=== PATIENT | male | born 1935 | race Caucasian/White ===

== ENCOUNTER 2016-12-13 11:20 | Inpatient (IN) | payer MEDICARE, OTHER ==
[~2016-12-13] VITALS: Ht 182.9 cm; Wt 115.5 kg
[2016-12-19] MEDS ORDERED: OXYC1TAB36 PO (10:30)
[2016-12-19] MEDS ORDERED: PRAV20TA2 PO (10:30)
[2016-12-19] MEDS ORDERED: GLIP10TA6 PO (10:30)
[2016-12-19] MEDS ORDERED: MIRA33504 PO (10:30)
[2016-12-19] MEDS ORDERED: NIAC500T5 PO (10:30)
[2016-12-19] MEDS ORDERED: IPRAAER INH (10:30)
[2016-12-19] MEDS ORDERED: ASPI325T PO (10:30)
[2016-12-19] MEDS ORDERED: OMEP20TA PO (10:30)
[2016-12-19] MEDS ORDERED: CARV3.12 PO (10:30)
[2016-12-19] MEDS ORDERED: MORP1TAB24 PO (10:30)
[2016-12-19] MEDS ORDERED: CLON0.1T PO (10:30)
[2016-12-19] MEDS ORDERED: HYDR-3583 PO (10:30)
[2016-12-19] MEDS ORDERED: FURO20TA PO (10:30)
[2017-01-04] MEDS ORDERED: TRANEXAMIC ACID IV SCH (05:45)
[2017-01-04] MEDS ORDERED: ceFAZolin 2 GM PREMIX 50 ML IV SCH (05:45)
[2017-01-04] MEDS ORDERED: SODIUM CHLORID 0.9% 500 ML IV PRN (05:45)
[2017-01-04] MEDS ORDERED: CHLORHEXIDINE GLUCONATE 2 % 1 PACK (2 CLOTHS) TOPICAL PRN (05:45)
[2017-01-04] MEDS ORDERED: VANCOMYCIN 1000 MG/NS 250 ML (for <70 kg) IV SCH ×2 (05:45)
[2017-01-04] MEDS ORDERED: POVIDONE IODINE 5% (ANTISEPSIS KIT) 4 APPLICATIONS EACH NARE PRN (05:45)
[2017-01-04] MEDS ORDERED: POVIDONE IODINE 7.5% SCRUB 118 ML BOTTLE TOPICAL SCH (05:45)
[2017-01-04] MEDS ORDERED: DEXAMETHASONE SOD PHOS 20 MG/5 ML VIAL IV PUSH SCH (05:45)
[2017-01-04] MEDS ORDERED: EXPAREL PERI-ARTICULAR INJECTION (TOTAL VOL. 60 ML) P-ARTICULR SCH ×2 (05:45)
[2017-01-04] MEDS ORDERED: SODIUM CHLORIDE 0.9% IV SCH (05:45)
[2017-01-04] MEDS ORDERED: INSULIN HUMAN REGULAR 1,000 UNITS/10 ML VIAL SQ PRN (05:45)
[2017-01-04] MEDS ORDERED: METOPROLOL TARTRATE 25 MG TAB PO PRN (05:45)
[2017-01-04] MEDS ORDERED: LACTATED RINGER'S 1000 ML IV PRN (05:45)
[2017-01-04 05:50] VITALS: BP 160/78; PULSE 60; RESP 22; TEMP 97.4; O2SAT 97
[2017-01-04] MEDS ORDERED: GENTAMICIN SULFATE 80 MG/2 ML VIAL ONE ×2 (06:11)
[2017-01-04] MEDS ORDERED: ACETAMINOPHEN 1000 MG/100 ML VIAL IV ONE (06:38)
[2017-01-04] MEDS ORDERED: FAMOTIDINE 20 MG/2 ML VIAL ONE (06:41)
[2017-01-04] MEDS ORDERED: MIDAZOLAM HCL 2 MG/2 ML VIAL ONE (06:41)
[2017-01-04] MEDS ORDERED: fentaNYL CITRATE 250 MCG/5 ML AMP ONE (06:41)
--- NOTE | 2017-01-04 06:46 | HHI.DCPOC ---
Discharge Care Plan Diagnosis: (1) Osteoarthritis of right hip (2) Status post total hip replacement, right Your Health Problems Are: Difficulty with ADL Goals to Promote Your Health * To prevent worsening of your condition and complications * To maintain your health at the optimal level Directions to Meet Your Goals Take your medications as prescribed Follow your dietary instruction Follow activity as directed Keep your appointments as scheduled Take your immunizations and boosters as scheduled If your symptoms worsen call your PCP, if no PCP go to Urgent Care Center or Emergency Room Smoking is Dangerous to Your Health. Avoid second hand smoke Call the 24-hour hour crisis hotline for domestic abuse at Raji Rangel January 04, 2017 06:46
--- NOTE | 2017-01-04 06:47 | HHI.FF ---
Face to Face Verification Diagnosis: (1) Osteoarthritis of right hip (2) Status post total hip replacement, right Physical Therapy Gait training, Transfer training, bed to chair Hip: Total hip Right LE Weight Bearing: WB as tolerated Right LE Range of Motion: Active ROM Nursing Nursing: Lara teaching, Dressing changes Dressing Changes: Daily dressing change I have seen patient Ton Anna on 01/04/17. My clinical findings support the need for the requested home health care services because: Limited ability to care for self High risk of falls I certify that my clinical findings support that this patient is homebound because: Post-op weakness Unsteady gait/balance Raji Rangel January 04, 2017 06:47
[2017-01-04] MEDS ORDERED: MORPHINE SULFATE 4 MG/ML INJ IV PUSH PRN (08:45)
[2017-01-04] MEDS ORDERED: SODIUM CHLORIDE 0.9% FLUSH 5 ML FLUSH IVF PRN (08:45)
[2017-01-04] MEDS ORDERED: ALUMINUM/MAGNESIUM/SIMETH 30 ML CUP PO PRN (08:45)
[2017-01-04] MEDS ORDERED: ZOLPIDEM TARTRATE 5 MG TAB PO PRN (08:45)
[2017-01-04] MEDS ORDERED: diphenhydrAMINE HCL 50 MG/ML VIAL IV PRN (08:45)
[2017-01-04] MEDS ORDERED: Post-op Orders (for Pharmacy) MISC XX ONE (08:45)
[2017-01-04] MEDS ORDERED: ONDANSETRON HCL 4 MG/2 ML VIAL IVP PRN (08:45)
[2017-01-04] MEDS ORDERED: BISACODYL 10 MG SUPP RECTAL PRN (08:45)
[2017-01-04] MEDS ORDERED: MAGNESIUM HYDROXIDE SUSP 30 ML CUP PO PRN (08:45)
[2017-01-04] MEDS ORDERED: NALOXONE HCL 0.4 MG/ML AMP IV PRN (08:45)
--- NOTE | 2017-01-04 08:46 | PD.OP ---
cc: Moody Wilder MD Operative Report Date of Surgery: January 04, 2017 Preoperative Diagnosis: Right hip severe osteoarthritis Postoperative Diagnosis: Same Procedure: Right total hip arthroplasty Anesthesia: Gen. Surgeon: Moody Wilder Convention Manager(s): PAKO Londono The surgical procedure was assisted by my Advanced Registered Nurse Practitioner. My VP HR DIVERSITY presence was necessary throughout this case for the manipulation and positioning of the surgical extremity. My VP HR DIVERSITY was assisting me throughout the duration of this procedure. The skill set of an Advance Registered Nurse Practitioner was medically necessary to complete this procedure. During the surgical case, the technician chemical cleaning was working at the back table and the Advance Registered Nurse Practitioner was directly assisting me. Operation and Findings: IMPLANT DESCRIPTION: 1. [place] Gription Cup, acetabular size 56. 2. [place] AltrX polyethylene, neutral. 4. [place] femoral stem size 16, no collar, standard offset. 5. Femoral head/neck metal, 36, +5. ESTIMATED BLOOD LOSS: 250 cc. JUSTIFICATION FOR PROCEDURE: The patient has end-stage osteoarthritis to the hip. There is an attached conservative measures pathway form in the chart that describes the nonoperative measures that were undertaken prior to consideration of surgical management. The patient understood the risks and benefits of surgical management. See my office notes for further details. PROCEDURE: The patient was brought back to the operative theatre. Adequate anesthesia was obtained. The patient received intravenous vancomycin and Ancef. The patient was carefully placed on the operative table. The lower extremity was prepped and draped in the usual sterile fashion. Fluoroscopic images were obtained. We made a standard anterior incision over the hip. We dissected through the TFL fascia, exposing the anterior capsule. Arthrotomy was performed in a T-shaped fashion. The capsule was tagged with a #2 FiberWire. End-stage arthritis was identified. Osteotomy was performed through the femoral neck exposing the acetabulum. Remnants of the labrum were resected and osteophytes were removed. We sequentially reamed the acetabulum. We trialed the hip and placed the final cup into position. This was done under fluoroscopic guidance to obtain the appropriate inclination and anteversion. A manhole cover was placed into the acetabular component. We then placed the final polyethylene into position and confirmed that it was well seated. Capsular attachments on the calcar and the inner aspect of the greater trochanter were resected. On the proximal aspect of the femur we used a rongeur , box osteotome, canal finder, sequential broaches and lateralizing rasp. We calcar planed the proximal femur. Then thoroughly irrigated the wound. We trialed the hip with the appropriate size stem. We placed the final stem in to position and trialed again. The hip was stable while it was externally rotated 70 degrees when the leg was lowered to the floor. The final head was applied, and final fluoroscopic images were obtained. The wound was thoroughly irrigated again. Interarticular injection of liposomal bupivacaine was given. The capsule was closed with #2 FiberWire and #1 Vicryl. The deep fascia was closed with a #2 Stratafix, followed by 2-0 Vicryl in the skin and ad. Postop plan is to weight-bear as tolerated. DVT prophylaxis will be performed with Marga, MAYE alcala, early mobilization, and Lovenox followed by aspirin. Moody Wilder MD January 04, 2017 08:46
[2017-01-04] MEDS ORDERED: ENOX40P SQ (08:48)
[2017-01-04] MEDS ORDERED: ASPI325T PO (08:48)
[2017-01-04] MEDS ORDERED: PERC10TA27 PO (08:48)
--- NOTE | 2017-01-04 08:48 | RADRPT ---
EXAM DATE/TIME: 01/04/2017 07:18 [facility] COMPARISON: No previous studies available for comparison. INDICATIONS : Post-op total right hip arthroplasty. MEDICAL HISTORY : None. SURGICAL HISTORY : None. ENCOUNTER: Initial ACUITY: 1 day PAIN SCORE: Non-responsive. LOCATION: Right hip. CONCLUSION: Fluoroscopic images of right hip arthroplasty. Toribio Baker MD on January 04, 2017 at 8:46 Board Certified Radiologist. This report was verified electronically.
[2017-01-04] MEDS: SODIUM CHLORIDE 0.9% FLUSH 5 ML FLUSH IVF SCH ×2 (09:00→21:03)
[2017-01-04] MEDS ORDERED: DO NOT ADM ANY ANTICOAGULANT DRUGS PRN (09:15)
[2017-01-04] MEDS ORDERED: *morphine SULFATE 8 MG/ML PERIprocedure ONLY ONE ×2 (09:18→09:31)
[2017-01-04] MEDS ORDERED: TRANEXAMIC ACID INJ 1,100 MG in SODIUM CHLORIDE 0.9% INJ 100 ML IV SCH (10:00)
[2017-01-04] MEDS ORDERED: *ENALAPRILAT 1.25 MG/ML VIAL PERIprocedural Use ONLY ONE (10:20)
--- NOTE | 2017-01-04 10:34 | RADRPT ---
EXAM DATE/TIME: 01/04/2017 09:45 [facility] COMPARISON: HIP RIGHT (AP&LAT 2/3VWS) WO AP PELVIS, January 04, 2017, 7:18. INDICATIONS : Post op right hip. MEDICAL HISTORY : None. SURGICAL HISTORY : None. ENCOUNTER: Initial ACUITY: 1 day PAIN SCORE: Non-responsive. LOCATION: Right hip. FINDINGS: Patient is status post right total hip arthroplasty. The femoral and acetabular components appear wel l-seated. Skin ad are present and a small amount of subcutaneous emphysema is noted. There is se cristel osteoarthritis of the left hip. CONCLUSION: Satisfactory appearance right hip arthroplasty. Dain Hale MD on January 04, 2017 at 10:32 Board Certified Radiologist. This report was verified electronically.
[2017-01-04 11:35] VITALS: BP 162/76; PULSE 63; RESP 18; TEMP 95.9; O2SAT 96
[2017-01-04] MEDS ORDERED: NEOSTIGMINE 3 MG/3 ML SYR IV ONE (12:00)
[2017-01-04] MEDS ORDERED: LACTATED RINGER'S 1000 ML INJ 1,000 ML IV ONE (12:00)
[2017-01-04] MEDS ORDERED: PROPOFOL 200 MG/20 ML AMP IV ONE (12:00)
[2017-01-04] MEDS ORDERED: ONDANSETRON HCL 4 MG/2 ML VIAL IV PUSH ONE (12:00)
[2017-01-04] MEDS: FUROSEMIDE 20 MG TAB PO SCH (12:06)
[2017-01-04] MEDS: PANTOPRAZOLE SOD 20 MG DELAYED RELEASE TAB PO SCH (12:06)
[2017-01-04] MEDS: CARVEDILOL 3.125 MG TAB PO SCH ×2 (12:06→21:03)
[2017-01-04] MEDS: cloNIDine HCL 0.1 MG TAB PO SCH ×2 (12:07→21:03)
[2017-01-04] MEDS: glipiZIDE 10 MG TAB PO SCH (15:43)
[2017-01-04] MEDS: oxyCODONE/ACETAMINOPHEN 10 MG/325 MG TAB PO PRN ×2 (15:43→21:18)
[2017-01-04 15:49] VITALS: BP 139/76; PULSE 60; RESP 18; TEMP 95.6; O2SAT 98
[2017-01-04 16:04] VITALS: O2SAT 98
[2017-01-04] MEDS ORDERED: IPRATROPIUM ALBUTEROL INH SCH (18:00)
[2017-01-04] MEDS: SODIUM CHLOR 0.9% 1000 ML INJ 1,000 ML IV SCH ×2 (18:42→23:48)
[2017-01-04 20:00] VITALS: BP 134/63; PULSE 67; RESP 17; TEMP 96.4; O2SAT 99
[2017-01-04] MEDS ORDERED: PRAVASTATIN SOD 20 MG TAB PO SCH (21:00)
[2017-01-04] MEDS ORDERED: POLYETHYLENE GLYCOL 17 GM PKG PO SCH (21:00)
[2017-01-04] MEDS ORDERED: NIACIN 500 MG EXTENDED RELEASE TAB PO SCH (21:00)
[2017-01-05] VITALS: BP 143/66; PULSE 61; RESP 17; TEMP 97; O2SAT 99
[2017-01-05 04:00] VITALS: BP 146/73; PULSE 77; RESP 17; TEMP 96.7; O2SAT 95
[2017-01-05] MEDS: oxyCODONE/ACETAMINOPHEN 10 MG/325 MG TAB PO PRN ×2 (05:59→16:51)
[2017-01-05] MEDS: glipiZIDE 10 MG TAB PO SCH ×2 (06:00→16:54)
[2017-01-05] MEDS ORDERED: DEXAMETHASONE SOD PHOS 20 MG/5 ML VIAL IV ONE (07:45)
[2017-01-05 08:00] VITALS: BP 164/77; PULSE 60; RESP 18; TEMP 96.9; O2SAT 99
[2017-01-05] MEDS ORDERED: ENOXAPARIN SODIUM 40 MG/0.4 ML SYRINGE SQ SCH (08:00)
[2017-01-05] MEDS: FUROSEMIDE 20 MG TAB PO SCH (08:22)
[2017-01-05] MEDS: cloNIDine HCL 0.1 MG TAB PO SCH (08:22)
[2017-01-05] MEDS: PANTOPRAZOLE SOD 20 MG DELAYED RELEASE TAB PO SCH (08:22)
[2017-01-05] MEDS: CARVEDILOL 3.125 MG TAB PO SCH (08:22)
[2017-01-05] MEDS: SODIUM CHLORIDE 0.9% FLUSH 5 ML FLUSH IVF SCH (08:22)
[2017-01-05 12:00] VITALS: BP 129/65; PULSE 66; RESP 18; TEMP 97; O2SAT 94
[2017-01-05 12:25] LABS: HEMATOCRIT 33.2 % (39.0-51.0); MEAN CELL VOLUME 84.4 FL (80.0-100.0); MEAN CORPUSCULAR HEMOGLOBIN 27.2 PG (27.0-34.0); MEAN CORPUSCULAR HGB CONC 32.3 % (32.0-36.0); PLATELET COUNT 179 TH/MM3 (150-450); RED BLOOD COUNT 3.93 MIL/MM3 (4.50-5.90); RED CELL DISTRIBUTION WIDTH 14.7 % (11.6-17.2); REVIEW FLAG FINAL; WHITE BLOOD COUNT 15.2 TH/MM3 (4.0-11.0)
--- NOTE | 2017-01-05 12:35 | PD.ORT.PN ---
Subjective Post Op Day #: 1 Subjective Remarks Patient is OOB in chair with minimal pain to the right hip. Patient has been ambulatory and is voiding. Patient requesting to go home with home health today. Objective Vitals Vital Signs Date Time Temp Pulse Resp B/P Pulse Ox O2 Delivery O2 Flow Rate FiO2 01/05/17 08:00 96.9 60 18 164/77 99 01/05/17 04:00 96.7 77 17 146/73 95 01/05/17 00:00 97.0 61 17 143/66 99 01/04/17 20:00 96.4 67 17 134/63 99 01/04/17 16:04 98 Nasal Cannula 2.00 01/04/17 15:49 95.6 60 18 139/76 98 I/O 01/04/17 01/04/17 01/04/17 01/05/17 01/05/17 01/05/17 07:00 15:00 23:00 07:00 15:00 23:00 Intake Total 200 ml 560 ml 360 ml Output Total 100 ml 700 ml 1300 ml Balance 100 ml -140 ml -940 ml Intake Oral 360 ml 360 ml IV Total 200 ml 200 ml Output Urine Total 100 ml 700 ml 1300 ml # Bowel Movements 0 0 Procedures Right YASHIRA Objective Remarks The patient's dressings changed with scant serosanguineous drainage. Incision well approximated with surgical clips intact. No redness or s/s of infection. EHL/TA/G intact. 2+ pedal pulse. Calf is soft and nontender. Minimal swelling. + SILT. Assessment & Plan Ortho Post Op Day #: 1 Problem List: Assessment and Plan POD #1: Right YASHIRA 1. WBAT RLE 2. Lovenox followed by ASA for DVT prophylaxis 3. Ice to the right hip PRN 4. Stable for discharge home with home health today Raji Ragnel January 05, 2017 12:35
--- NOTE | 2017-01-05 14:33 | MH ---
cc: DEWAYNE RUBAN DATE OF ADMISSION: 01/04/2017 CHIEF COMPLAINT Medical consultation. HISTORY OF PRESENT ILLNESS Ton Anna is a 81-year-old male who was admitted for elective right total hip arthroplasty by Dr. Moody Wilder, I was called for medical management and being that I am his primary care physician. He underwent yesterday right total hip arthroplasty. He has done well and he is asking for discharge. He has been cleared for discharge pending his progress today. The patient states that he has been up walking with a walker. Nurse notes that he has been agitated about going home and she feels that he would do okay. There have been no barriers it seems. He has been made weightbearing as tolerated the right lower extremity and then given orders for Lovenox followed by aspirin with ice as needed to the right hip. The patient has no new complaints. PAST MEDICAL HISTORY: 1. Osteoarthritis right hip. 2. Hypertension. 3. Emphysema 4. Type 2 diabetes. 5. Constipation. 6. Hyperlipidemia. SOCIAL HISTORY: No alcohol, tobacco or illicit drug usage. She is retired. PAST SURGICAL HISTORY Hand surgery Prostate surgery. HOME MEDICATIONS: 1. [place] three times a day. 2. Glipizide. 3. Lasix. 4. Pravastatin. 5. MiraLax. 6. Omeprazole. 7. Niacin. 8. Carvedilol. 9. Aspirin. 10. Clonidine 0.1 b.i.d. LABORATORY FINDINGS: White blood cell 15.2, hemoglobin 10.7. Potassium 4.7 on 12/19/2016, urinalysis from 12/19/2016 was negative. IMAGING STUDIES Hip x-ray Chest x-ray reviewed and within normal limits. He has a pacemaker in the chest. CURRENT MEDICATIONS Reviewed in a chart here in the hospital. He is on Lovenox 40 daily. PHYSICAL EXAMINATION: VITAL SIGNS: Temperature 96.9, blood pressure is 164/77, pulse 60, respirations 18, O2 is 99% on room air. IN GENERAL: He is alert elder male sitting up. He is very alert and conversive and boisterous as usual. HEAD, EYES, EARS, NOSE, AND THROAT: Oropharynx is clear. Carotids are clear. CHEST: Clear. No wheezes, rales, crackles or coughing. CARDIOVASCULAR SYSTEM: Regular rate and rhythm. No murmurs, rubs, clicks or gallops. ABDOMEN: Soft, obese, nontender. EXTREMITIES: No edema. SKIN: The skin is clear. MUSCULOSKELETAL: Right anterior hip incision is clean, dry and intact. There is dressing. NEUROLOGIC: No focal deficits. Cranial nerves are intact. Strength is 5/5 in upper and lower extremities although limited the right side due to pain, being that he is postoperative. ASSESSMENT 1. His right total hip arthroplasty, postoperative day #1. 2. Acute blood loss, anemia. 3. leukocytosis due to reaction to surgery. 4. Renal insufficiency. 5. Diabetes 6. Emphysema 7. Hypertension. PLAN 1. The patient has been cleared for discharge by orthopedics. He is medically stable to go home. He is up and functioning well. He is stating that he would sign out against medical advice anyway. 2. Home health was arranged. The patient agrees to see me in my office next week. Continue medications as outlined and continues home medications except for the aspirin. 3. Lovenox and then will be on aspirin for DVT prophylaxis. Thank you Dr. Wilder for the medical consultation and we will see him next week and I will have my office reach out to him as well. Dewayne Urban MD RP/andree /1:18 PM /1:57 PM
[2017-01-05] MEDS: SODIUM CHLOR 0.9% 1000 ML INJ 1,000 ML IV SCH (14:42)
[2017-01-05] MEDS ORDERED: DOCUSATE SODIUM 100 MG CAP PO SCH (21:00)
[2017-01-05] MEDS ORDERED: MULTIVITAMINS/MINERALS THERAPEUTIC TAB PO SCH (21:00)
[2017-01-06] MEDS ORDERED: ASPI325T PO (15:38)
[2017-01-06] MEDS ORDERED: ENOX40P SQ (15:38)
[2017-01-06] MEDS ORDERED: PERC10TA27 PO (15:38)
--- NOTE | 2017-01-10 14:34 | HHI.DS ---
Discharge Summary Admission Date January 04, 2017 at 05:07 Discharge Date: January 05, 2017 Admitting Diagnosis OA of the right hip Status post total hip replacement, right Diagnosis: (1) Status post total hip replacement, right Diagnosis: Principal (2) Osteoarthritis of right hip Diagnosis: Principal Procedures Right YASHIRA Brief History This is a 81 year old male patient with severe OA of the right hip. PE at Discharge The patient's dressings changed with scant serosanguineous drainage. Incision well approximated with surgical clips intact. No redness or s/s of infection. EHL/TA/G intact. 2+ pedal pulse. Calf is soft and nontender. Minimal swelling. + SILT. Hospital Course The patient was admitted with severe OA of the right hip to have a right YASHIRA. The patient's surgery went well without complication. The patient is WBAT on the LLE. The patient is on a diabetic diet. The patient was placed on Lovenox followed by ASA for DVT prophylaxis. The patient was discharged home with home health and will f/u with Dr. Wilder in 1-2 weeks. Pt Condition on Discharge: Stable Discharge Disposition: Disch w/ Home Health Serv Discharge Instructions Diet Instructions: Diabetic Diet Activities You Can Perform: Weight Bearing as Conchita Activities to Avoid: Strenuous Activity Follow up Referrals: Orthopedics with Moody Wilder MD PCP Follow-up - [address] URBAN New Medications: Aspirin (Aspirin) 325 Mg Tab 325 MG PO ONCE Start Aspirin after Lovenox is completed. Prevent Blood Clot #30 Ref 0 TAB Enoxaparin Inj (Lovenox Inj) 40 Mg/0.4 Ml Syr 40 MG SQ DAILY Start Aspirin after Lovenox is completed. Blood Clot Prevention # 10 Ref 0 SYRINGE Oxycodone-Acetaminophen (Percocet) 10-325 mg Tab 1-2 TAB PO Q4H PRN PAIN #60 Ref 0 TAB Continued Medications: Carvedilol (Carvedilol) 3.125 Mg Tab 3.125 MG PO BID #60 Ref 0 TAB Clonidine (Clonidine) 0.1 Mg Tab 0.1 MG PO BID Blood Pressure Management #60 Ref 0 TAB Furosemide (Furosemide) 20 Mg Tab 10 MG PO DAILY #30 Ref 0 TAB Glipizide (Glipizide) 10 Mg Tab 10 MG PO BIDAC Take 30 minutes before a meal Blood Sugar Management #60 Ref 0 TAB Ipratropium-Albuterol Inh (Combivent Respimat Inh) 20-100 Snf/Act Aero 1 PUFF INH QID Asthma Management #1 Ref 0 INHALER Niacin (Niacin) 500 Mg Tab 500 MG PO HS Cholesterol Management #30 Ref 0 TAB Omeprazole (Omeprazole) 20 Mg Tab 20 MG PO DAILY #30 Ref 0 TAB Pravastatin (Pravastatin) 20 Mg Tab 20 MG PO HS Cholesterol Management #30 Ref 0 TAB Discontinued Medications: Aspirin (Aspirin) 325 Mg Tab 325 MG PO DAILY #30 Ref 0 TAB Hydrocodone-Acetaminophen (Hydrocodone-Acetaminophen) 10-325 mg Tab 1 TAB PO Q4H PRN PAIN Ref 0 TAB Oxycodone-Acetaminophen (Oxycodone-Acetaminophen) 10-325 mg Tab 1 TAB PO Q4H PRN PAIN Ref 0 TAB Raji Rangel January 10, 2017 14:34
== END 2017-01-05 18:21 | disposition home health service (06) | DRG 470 ==
LOC: HSDI 01-04 05:07 → N06B 01-04 11:05
PROVIDERS: ADMIT Orthopaedic Surgery; ATTEND Orthopaedic Surgery
PROC: 0SR90JA Replacement of Right Hip Joint with Synthetic Substitute, Uncemented, Open Approach (ICD-10-PCS; principal; 2017-01-04 06:45)
DX: M16.11 Unilateral primary osteoarthritis, right hip (principal); E11.22 Type 2 diabetes mellitus with diabetic chronic kidney disease; D62 Acute posthemorrhagic anemia; J43.9 Emphysema, unspecified; K59.00 Constipation, unspecified; N18.9 Chronic kidney disease, unspecified; G47.33 Obstructive sleep apnea (adult) (pediatric); I12.9 Hypertensive chronic kidney disease with stage 1 through stage 4 chronic kidney disease, or unspecified chronic kidney disease; E78.5 Hyperlipidemia, unspecified; K21.9 Gastro-esophageal reflux disease without esophagitis; E66.9 Obesity, unspecified; Z95.0 Presence of cardiac pacemaker; Z68.34 Body mass index [BMI] 34.0-34.9, adult; Z87.891 Personal history of nicotine dependence
CPT/HCPCS: 73502; 76000; 82948; 85027; 86850; 86900; 86901; 94150; C1776; C9290; J0131; J0690; J1100; J1580; J1650; J2250; J2270; J2405; J2710; J3010; J3370; J7030; J7050; J7120

== ENCOUNTER → 2016-12-19 | Outpatient (CLI) | payer MEDICARE, OTHER ==
[~2016-12-19] MED LIST: ASPI325T PO; ASPI81TA82 PO; AVOD0.5C PO; CARV3.12 PO; CARV3.125 PO; CLON0.1T PO; DIOV160T60 PO; DOXA1 OR; ENOX40P SQ; FERR324T4 OR; FURO20TA PO; GLIP10TA6 PO; GLYB1TAB50 PO; HOSP BED1; HYDR-3583 PO; IPRAAER INH; MIRA33504 PO; MORP1TAB24 PO; MSIR15 OR; NIAC500T5 PO; OMEP20TA OR; OMEP20TA PO; OXYC10TA6 PO; OXYC1TAB36 PO; PERC10TA27 PO; PRAV20TA2 PO; RAMI5CAP7 PO; SIMV20TA OR
[2016-12-19 10:31] LABS: BLOOD, URINE NEG (NEG); COMMENT (UR) CULT NOT INDICATED; CULTURE IF INDICATED CULT NOT INDICATED; GLUCOSE,URINE NEG (NEG); KETONE, URINE NEG (NEG); NITRITE,URINE NEG (NEG); PH, URINE 7.5 (5.0-8.5); SQUAMOUS EPITHELIAL CELL URINE <1 /hpf (0-5); URINE COLOR YELLOW (YELLW/STRAW)
[2016-12-19 10:31] LABS: AUTOMATED NEUTROPHIL # 5.2 TH/MM3 (1.8-7.7); BASOPHIL % 0.5 % (0.0-2.0); EOSINOPHIL # 0.4 TH/MM3 (0-0.4); EOSINOPHIL % 5.2 % (0.0-4.0); HEMATOCRIT 38.4 % (39.0-51.0); HEMO FLAGS DIFF FINAL; LYMPH % 22.2 % (9.0-44.0); LYMPHOCYTE # 1.8 TH/MM3 (1.0-4.8); MEAN CELL VOLUME 84.9 FL (80.0-100.0); MEAN CORPUSCULAR HEMOGLOBIN 27.6 PG (27.0-34.0); MEAN CORPUSCULAR HGB CONC 32.5 % (32.0-36.0); MONO % 7.7 % (0.0-8.0); NEUT % 64.4 % (16.0-70.0); PLATELET COUNT 229 TH/MM3 (150-450); RED BLOOD COUNT 4.52 MIL/MM3 (4.50-5.90); RED CELL DISTRIBUTION WIDTH 14.5 % (11.6-17.2); WHITE BLOOD COUNT 8.1 TH/MM3 (4.0-11.0)
[2016-12-19 10:45] LABS: WESTERGREN SEDIMENTATION RATE 50 mm/hr (0-20)
[2016-12-19 10:51] LABS: ANION GAP 5 MEQ/L (5-15); AST (GOT) 14 U/L (15-37); BICARBONATE 30.3 MEQ/L (21.0-32.0); BLOOD UREA NITROGEN 23 MG/DL (7-18); CHLORIDE 105 MEQ/L (98-107); GLOMERULAR FILTRATION RATE 65 ML/MIN (>89); GLUCOSE,FASTING 118 MG/DL (74-99); POTASSIUM 4.7 MEQ/L (3.5-5.1); SODIUM (NA) 140 MEQ/L (136-145)
[2016-12-19 10:55] LABS: ALKALINE PHOSPHATASE 97 U/L (45-117); ALT (GPT) 19 U/L (12-78); TOTAL BILIRUBIN ADULT 0.4 MG/DL (0.2-1.0)
[2016-12-19 10:59] LABS: APTT (PATIENT) 28.7 SEC (24.3-30.1); PROTHROMBIN TIME - PATIENT 10.5 SEC (9.8-11.6)
--- NOTE | 2016-12-19 11:26 | RADRPT ---
EXAM DATE/TIME: 12/19/2016 11:09 [facility] COMPARISON: No previous studies available for comparison. INDICATIONS : Evaluate for pneumonia, pneumothorax, and communicable diseases. Pre-op hip surgery. MEDICAL HISTORY : None. SURGICAL HISTORY : Pacemaker. 2013. ENCOUNTER: Initial ACUITY: 1 day PAIN SCORE: 0/10 LOCATION: Bilateral chest FINDINGS: PA and lateral views of the chest demonstrate the lungs to be symmetrically aerated without evidence of mass, infiltrate or effusion. Dual-chamber cardiac pacemaker is noted. The cardiomediastinal cont ours are unremarkable. Healed right-sided rib fractures are identified. Osseous structures are otherw ise intact. CONCLUSION: No acute disease. Cardiac pacemaker. Yemi Rain MD on December 19, 2016 at 11:23 Board Certified Radiologist. This report was verified electronically.
== END ==
LOC: CPRE 09:06
PROVIDERS: ATTEND Orthopaedic Surgery
DX: Z01.812 Encounter for preprocedural laboratory examination (principal); Z01.818 Encounter for other preprocedural examination; M25.50 Pain in unspecified joint; M16.11 Unilateral primary osteoarthritis, right hip
CPT/HCPCS: 36415; 71020; 80053; 81001; 85025; 85610; 85652; 85730

== ENCOUNTER 2017-01-06 12:01 | Observation (INO) | payer MEDICARE, OTHER ==
[~2017-01-06] VITALS: Ht 182.9 cm; Wt 110.9 kg
[~2017-01-06 12:01] MED LIST changes: -ASPI81TA82 PO; -AVOD0.5C PO; -CARV3.125 PO; -DIOV160T60 PO; -DOXA1 OR; -FERR324T4 OR; -GLYB1TAB50 PO; -HOSP BED1; -HYDR-3583 PO; -MORP1TAB24 PO; -MSIR15 OR; -OMEP20TA OR; -OXYC10TA6 PO; -OXYC1TAB36 PO; -RAMI5CAP7 PO; -SIMV20TA OR
[2017-01-06 12:04] VITALS: BP 179/78; PULSE 76; RESP 24; O2SAT 95
--- NOTE | 2017-01-06 12:10 | PD ---
Physical Exam Time Seen by Provider: 12:09 Narrative 81 y/o male with recent R hip arthroplasty performed by Dr. Wilder having difficulty with ADL's, la Wilder today who recommended coming here. Vital signs reviewed. Seen at triage desk, awaiting bed placement. Data Data Last Documented VS Vital Signs Date Time Temp Pulse Resp B/P Pulse Ox O2 Delivery O2 Flow Rate FiO2 01/06/17 12:04 76 24 179/78 95 Room Air [facility] Medical Record Reviewed: Yes Supervised Visit with CARLITA: Wilfrido Montague January 06, 2017 12:10
--- NOTE | 2017-01-06 12:32 | PD ---
HPI Chief Complaint: Pain: Acute or Chronic Time Seen by Provider: 12:30 Travel History International Travel<30 days: No Contact w/Intl Traveler<30days: No Traveled to known affect area: No History of Present Illness HPI 81-year-old male with history of T2 DM, HTN, right hip arthroplasty 01/[address] Grady presents to the ED for evaluation of inability to perform ADLs. Patient states he was discharged home yesterday at his own request. He states that he has realized he made an error and is unable to care for himself. He requests to be admitted to a rehabilitation center. Patient was seen by home health nurse, clean dressing applied today. On presentation he denies fever, chills, chest pain, shortness of breath. He states he has not taken any pain medications or eaten since discharge from the hospital. Complains of 5/10 right hip pain and hunger on presentation. 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, COPD) Thyroid Disease: Yes Tetanus Vaccination: < 5 Years Influenza Vaccination: Yes Past Surgical History Abdominal Surgery: Yes (surgery for hiatel hernia, UMBILICAL HERNIA REPAIR, CHOLECYSTECTOMY) AICD: No Cardiac Surgery: Yes (PACER MAKER) Ear Surgery: Yes (RETINA REPAIR, CATARACTS REMOVED) Eye Surgery: Yes (CATARCT REMOVED BILATERAL) Genitourinary Surgery: Yes (PROSTATE SURGERY) Joint Replacement: No Pacemaker: Yes Thoracic Surgery: No Other Surgery: Yes Social History Alcohol Use: No Tobacco Use: No Substance Use: No Allergies-Medications (Allergen,Severity, Reaction): Coded Allergies: Codeine (Verified Allergy, Intermediate, ITCH, 01/06/17) Uncoded Allergies: CODEINE PHOSPHATE (Allergy, Unknown, 12/19/16) Reported Meds & Prescriptions Reported Meds & Active Scripts Active Percocet (Oxycodone-Acetaminophen) 10-325 mg Tab 1-2 Tab PO Q4H PRN Aspirin 325 Mg Tab 325 Mg PO DAILY Start Aspirin after Lovenox is completed. Lovenox Inj (Enoxaparin Sodium) 40 Mg/0.4 Ml Syr 40 Mg SQ DAILY Start Aspirin after Lovenox is completed. Percocet (Oxycodone-Acetaminophen) 10-325 mg Tab 1-2 Tab PO Q4H PRN Aspirin 325 Mg Tab 325 Mg PO ONCE Start Aspirin after Lovenox is completed. Lovenox Inj (Enoxaparin Sodium) 40 Mg/0.4 Ml Syr 40 Mg SQ DAILY Start Aspirin after Lovenox is completed. Reported Glipizide 10 Mg Tab 10 Mg PO BIDAC Take 30 minutes before a meal Combivent Respimat Inh (Ipratropium-Albuterol Inh) 20-100 Detention/Act Aero 1 Puff INH QID Furosemide 20 Mg Tab 10 Mg PO DAILY Pravastatin 20 Mg Tab 20 Mg PO HS Omeprazole 20 Mg Tab 20 Mg PO DAILY Niacin 500 Mg Tab 500 Mg PO HS Carvedilol 3.125 Mg Tab 3.125 Mg PO BID Clonidine (Clonidine HCl) 0.1 Mg Tab 0.1 Mg PO BID Review of Systems Except as stated in HPI: all other systems reviewed are Neg Physical Exam Narrative GENERAL: Well-nourished, well-developed cantankerous elderly white male in no acute distress. SKIN: Focused skin assessment warm/dry. Surgical ad in place on the right hip wound. No drainage, bleeding or signs of infection. HEAD: Normocephalic. EYES: No scleral icterus. No injection or drainage. NECK: Supple, trachea midline. No JVD or lymphadenopathy. CARDIOVASCULAR: Regular rate and rhythm without murmurs, gallops, or rubs. RESPIRATORY: Breath sounds equal bilaterally. No accessory muscle use. GASTROINTESTINAL: Abdomen soft, non-tender, nondistended. Active bowel sounds. MUSCULOSKELETAL: No cyanosis, or edema. BACK: Nontender without obvious deformity. No CVA tenderness. Data Data Last Documented VS Vital Signs Date Time Temp Pulse Resp B/P Pulse Ox O2 Delivery O2 Flow Rate FiO2 01/06/17 14:52 97.7 76 18 156/81 98 Room Air Orders Oxycodone-Acetamin 10-325 Mg (Percocet 1 (01/06/17 12:45) Diet Diabetic (01/06/17 Lunch) Admit Order (Ed Use Only) (01/06/17 15:30) MDM Medical Decision Making Medical Screen Exam Complete: Yes Emergency Medical Condition: Yes Differential Diagnosis post operative complication versus inability to perform ADLs versus hip pain versus other Narrative Course 81-year-old male with history of T2DM, HTN, right hip arthroplasty 01/[address] Grady presents to the ED for evaluation of inability to perform ADLs. Patient states he was discharged home yesterday at his own request. He states that he has realized he made an error and is unable to care for himself. He requests to be admitted to a rehabilitation center. Patient was seen by home health nurse, clean dressing applied today. On presentation he denies fever, chills, chest pain, shortness of breath. He states he has not taken any pain medications or eaten since discharge from the hospital. Complains of 5/10 right hip pain and hunger on presentation. Vitals reviewed. Physical exam reveals a cantankerous white male in NAD. The surgical wound of the right hip is without signs of infection, drainage or bleeding. Chest CTAB, abdomen soft and non tender. Patient was administered 10mg Lortab by mouth and lunch tray was ordered. I spoke with the manager of case management who states that the patient only had an overnight stay and does not qualify.Case management left a message with the patients family member, but the call was not returned. CBC: WBC 14.6 with a left shift. Hemoglobin 11.2. CMP: BUN 22, creatinine 0.97. Calcium 8.2. UA: No culture indicated. Patient was administered 1 L bolus NS. Consult placed with Dr. Grady. I spoke with Dr. Daugherty who agrees to accept the patient to the medicine service. Patient is dehydrated, has a mild leukocytosis, is unable to perform ADLs and will be admitted to observation. Please see medicine and ortho notes for disposition. Scripts Oxycodone-Acetaminophen (Percocet)10-325 mg Tab1-2 Tab PO Q4H PRN (PAIN) #40 TAB Ref 0 Prov:Moody Wilder MD 01/06/17 Aspirin 325 Mg [id number] Mg PO DAILY #30 TAB Ref 0 Start Aspirin after Lovenox is completed. Prov:Moody Wilder MD 01/06/17 Enoxaparin Inj (Lovenox Inj)40 Mg/0.4 Ml Syr40 Mg SQ DAILY #7 SYRINGE Ref 0 Start Aspirin after Lovenox is completed. Prov:Moody Wilder MD 01/06/17 Arcelia Alexander January 06, 2017 12:32
[2017-01-06] MEDS ORDERED: oxyCODONE/ACETAMINOPHEN 10 MG/325 MG TAB PO ONE (12:45)
[2017-01-06 14:52] VITALS: BP 156/81; PULSE 76; RESP 18; TEMP 97.7; O2SAT 98
[2017-01-06] MEDS ORDERED: ENOX40P SQ (15:38)
[2017-01-06] MEDS ORDERED: ASPI325T PO (15:38)
[2017-01-06] MEDS ORDERED: PERC10TA27 PO (15:38)
--- NOTE | 2017-01-06 16:06 | PD.ORT.PN ---
Subjective Subjective Remarks This patient reported to the ER this morning due to difficulty with taking care of himself at home following his hip replacement. The patient says he does have some moderate pain about the hip. He says he did not realize that he can put full weight on his right hip. Objective Vitals Vital Signs Date Time Temp Pulse Resp B/P Pulse Ox O2 Delivery O2 Flow Rate FiO2 01/06/17 14:52 97.7 76 18 156/81 98 Room Air 01/06/17 13:50 17 01/06/17 12:22 18 01/06/17 12:04 76 24 179/78 95 Room Air I/O 01/05/17 01/05/17 01/05/17 01/06/17 01/06/17 01/06/17 07:00 15:00 23:00 07:00 15:00 23:00 Intake Total 280 ml Output Total 800 ml Balance -520 ml Intake Oral 280 ml Output Urine Total 800 ml # Voids 1 # Bowel Movements 0 Objective Remarks The right hip incision has scant serous drainage. There is no erythema. There is mild swelling about the hip. His calf has no tenderness. He can move the toes. Assessment & Plan Assessment and Plan Postop day #2 status post right total hip arthroplasty. This patient was discharged from the hospital yesterday. He was evaluated by home health care who was concerned that the patient could not take care of himself at home. The patient presented to the emergency room. I discussed the case with the physician in the emergency room, the charge nurse on the sixth floor, and other medical staff involved in his care. The ER physician will initiate a workup for dehydration and also to see if there are other medical conditions that would qualify for admission to the hospital. This would include a workup for anemia as well. The patient can weight-bear as tolerated on the right hip. No specific anterior precautions are necessary. The patient should be restarted on Lovenox 40 mg daily. We will write a prescription for this. Dr. Daugherty has agreed to admit the patient if necessary. Additionally I talked with the ER physician as far as having the patient placed in observation with physical therapy seeing him for weightbearing as tolerated, gait training, and transfer training. The ER physician will talk to the family member, specifically a niece to see what options there are for management of the patient at home. Please consult as necessary for management of the hip. Moody Wilder MD January 06, 2017 16:06
[2017-01-06 16:16] LABS: AUTOMATED NEUTROPHIL # 11.7 TH/MM3 (1.8-7.7); BASOPHIL % 0.3 % (0.0-2.0); EOSINOPHIL # 0.1 TH/MM3 (0-0.4); EOSINOPHIL % 0.4 % (0.0-4.0); HEMATOCRIT 33.4 % (39.0-51.0); HEMO FLAGS DIFF FINAL; LYMPH % 9.5 % (9.0-44.0); LYMPHOCYTE # 1.4 TH/MM3 (1.0-4.8); MEAN CELL VOLUME 84.2 FL (80.0-100.0); MEAN CORPUSCULAR HEMOGLOBIN 28.3 PG (27.0-34.0); MEAN CORPUSCULAR HGB CONC 33.6 % (32.0-36.0); MONO % 9.2 % (0.0-8.0); NEUT % 80.6 % (16.0-70.0); PLATELET COUNT 187 TH/MM3 (150-450); RED BLOOD COUNT 3.97 MIL/MM3 (4.50-5.90); RED CELL DISTRIBUTION WIDTH 14.4 % (11.6-17.2); WHITE BLOOD COUNT 14.6 TH/MM3 (4.0-11.0)
[2017-01-06 16:27] LABS: BLOOD, URINE TRACE (NEG); COMMENT (UR) CULT NOT INDICATED; CULTURE IF INDICATED CULT NOT INDICATED; GLUCOSE,URINE 1000 mg/dL (NEG); HYALINE CAST, URINE 4 /lpf (RARE); KETONE, URINE TRACE mg/dL (NEG); NITRITE,URINE NEG (NEG); SQUAMOUS EPITHELIAL CELL URINE <1 /hpf (0-5); URINE COLOR YELLOW (YELLW/STRAW)
[2017-01-06 16:43] LABS: ALT (GPT) 19 U/L (12-78); ANION GAP 5 MEQ/L (5-15); AST (GOT) 34 U/L (15-37); BICARBONATE 29.6 MEQ/L (21.0-32.0); BLOOD UREA NITROGEN 22 MG/DL (7-18); CHLORIDE 107 MEQ/L (98-107); GLOMERULAR FILTRATION RATE 74 ML/MIN (>89); POTASSIUM 3.9 MEQ/L (3.5-5.1); SODIUM (NA) 142 MEQ/L (136-145)
[2017-01-06 16:46] LABS: ALKALINE PHOSPHATASE 71 U/L (45-117); TOTAL BILIRUBIN ADULT 0.4 MG/DL (0.2-1.0)
[2017-01-06] MEDS ORDERED: ENOXAPARIN SODIUM 40 MG/0.4 ML SYRINGE SQ SCH (17:00)
[2017-01-06] MEDS ORDERED: SODIUM CHLOR 0.9% 1000 ML INJ 1,000 ML IV ONE (17:15)
[2017-01-06] MEDS: oxyCODONE/ACETAMINOPHEN 10 MG/325 MG TAB PO PRN ×3 (17:18→23:35)
[2017-01-06 17:22] VITALS: BP 150/84; PULSE 79; RESP 18; TEMP 97.8; O2SAT 98
[2017-01-06 18:12] VITALS: BP 146/76; PULSE 81; RESP 12; TEMP 96.6; O2SAT 94
[2017-01-06 19:57] VITALS: BP 170/77; PULSE 68; RESP 18; TEMP 96.8; O2SAT 96
[2017-01-06 23:39] VITALS: BP 141/73; PULSE 69; RESP 18; TEMP 96.6; O2SAT 96
[2017-01-07] MEDS: oxyCODONE/ACETAMINOPHEN 10 MG/325 MG TAB PO PRN ×4 (05:51→21:04)
[2017-01-07 07:45] VITALS: BP 189/68; PULSE 68; RESP 19; TEMP 96.9; O2SAT 94
[2017-01-07] MEDS ORDERED: ASPIRIN 325 MG TAB PO SCH (10:15)
[2017-01-07] MEDS ORDERED: PILL SPLITTER OTHER PRN (10:15)
[2017-01-07] MEDS ORDERED: BISACODYL 10 MG SUPP RECTAL PRN (10:15)
[2017-01-07] MEDS ORDERED: MAGNESIUM HYDROXIDE SUSP 30 ML CUP PO PRN (10:15)
[2017-01-07] MEDS ORDERED: SENNOSIDES 8.6 MG TAB PO PRN (10:15)
[2017-01-07] MEDS ORDERED: NALOXONE HCL 0.4 MG/ML AMP IV PRN (10:15)
[2017-01-07] MEDS ORDERED: ONDANSETRON HCL 4 MG/2 ML VIAL IVP PRN (10:15)
[2017-01-07] MEDS ORDERED: LACTULOSE SYRUP 20 GM/30 ML CUP PO PRN (10:15)
[2017-01-07] MEDS ORDERED: SODIUM CHLORIDE 0.9% FLUSH 10 ML FLUSH IV FLUSH PRN (10:15)
[2017-01-07] MEDS ORDERED: cloNIDine HCL 0.1 MG TAB PO PRN (10:30)
--- NOTE | 2017-01-07 11:05 | HHI.HP ---
[facility] Primary Care Physician Fan Daugherty MD Admission Diagnosis post operative pain, inability to perform ADLs Diagnoses: Chief Complaint: Unable to be independent at home post op. Travel History International Travel<30 Days: No Contact w/Intl Traveler <30 Da: No Traveled to Known Affected Are: No History of Present Illness 81-year-old male with a medical history significant for hypertension, type 2 diabetes, hyperlipidemia, osteoarthritis of the right hip status post arthroplasty 3 days ago, sleep apnea who had an elective hip arthroplasty on . The patient was discharged home with home health care per his request. However he has not been able to function independently at home. He has severe sleep apnea and can only sleep in a reclining position. He has been doing so for the past 10 years. However after getting in the recliner, he could not get out due to his hip. He reports having difficulty with ambulation as well. Therefore he returned to the hospital hoping to go to a rehabilitation facility. The patient is seen in his room. He reports mild pain at the right hip that is controlled with medications. He reports that he was not drinking and eating at home regularly because of his limited ability to move around. He states he lives in an apartment and has no help at home. Review of Systems Constitutional: DENIES: Fever, Chills Respiratory: DENIES: Cough, Shortness of breath Gastrointestinal: DENIES: Abdominal pain Musculoskeletal: COMPLAINS OF: Joint pain Except as stated in HPI: all other systems reviewed are Neg Past Family Social History Past Medical History hypertension, type 2 diabetes, hyperlipidemia, osteoarthritis of the right hip status post arthroplasty 3 days ago, sleep apnea who had an elective hip arthroplasty on 01/03/17 Constipation Past Surgical History Right hip arthroplasty Hand surgery Plastic surgery Pacemaker placement Reported Medications Reported Glipizide 10 Mg Tab 10 Mg PO BIDAC Take 30 minutes before a meal Combivent Respimat Inh (Ipratropium-Albuterol Inh) 20-100 Detention/Act Aero 1 Puff INH QID Furosemide 20 Mg Tab 10 Mg PO DAILY Pravastatin 20 Mg Tab 20 Mg PO HS Omeprazole 20 Mg Tab 20 Mg PO DAILY Niacin 500 Mg Tab 500 Mg PO HS Carvedilol 3.125 Mg Tab 3.125 Mg PO BID Clonidine (Clonidine HCl) 0.1 Mg Tab 0.1 Mg PO BID Miralax daily at bedtime Allergies: Coded Allergies: Codeine (Verified Allergy, Intermediate, ITCH, 01/06/17) Uncoded Allergies: CODEINE PHOSPHATE (Allergy, Unknown, 12/19/16) Family History Reviewed and noncontributory. Social History Patient leaves in an apartment by himself. He denies tobacco, alcohol, or illicit drug use. Physical Exam Vital Signs Vital Signs Date Time Temp Pulse Resp B/P Pulse Ox O2 Delivery O2 Flow Rate FiO2 01/07/17 07:45 96.9 68 19 189/68 94 01/06/17 23:39 96.6 69 18 141/73 96 01/06/17 19:57 96.8 68 18 170/77 96 01/06/17 18:12 96.6 81 12 146/76 94 01/06/17 17:22 97.8 79 18 150/84 98 Room Air 01/06/17 14:52 97.7 76 18 156/81 98 Room Air 01/06/17 13:50 17 01/06/17 12:22 18 01/06/17 12:04 76 24 179/78 95 Room Air Physical Exam CONSTITUTIONAL/GENERAL: This is an adequately nourished patient, in no apparent distress. Vital signs reviewed SKIN: No jaundice, rashes, or concerning lesions. Not diaphoretic. HEAD: Atraumatic. Normocephalic. EYES: Pupils equal and round and reactive. Extra ocular motions are intact. No scleral icterus. No injection or drainage. ENT: Hearing grossly normal. Nose without drainage. Throat without visible erythema, exudates, masses, or lesions. NECK: Trachea midline. Neck is supple, non-tender. No palpable thyroid enlargement or nodularity. CARDIOVASCULAR: Normal rate and regular rhythm without murmurs, gallops, or rubs. No JVD. Peripheral pulses 2+ and symmetric. RESPIRATORY/CHEST: Symmetric, unlabored respirations. Breath sounds equal and clear to auscultation bilaterally. No wheezes, crackles, rales, or rhonchi. GASTROINTESTINAL: Abdomen soft, non-tender, non-distended. No hepato- splenomegaly, or palpable masses. No guarding. Bowel sounds present. MUSCULOSKELETAL: Extremities without clubbing, cyanosis, or edema. Right hip postop dressing is clean and dry. Minimal pain to palpation. Neurovascularly intact distally. NEUROLOGICAL: Awake and alert. Motor and sensory grossly within normal limits. Follows commands. Move all extremities spontaneously. No focal deficits. PSYCHIATRIC: No obvious mood problems. No apparent hallucinations or other psychotic thought process. Laboratory Laboratory Tests Test 01/06/17 15:59 White Blood Count 14.6 Red Blood Count 3.97 Hemoglobin 11.2 Hematocrit 33.4 Mean Corpuscular Volume 84.2 Mean Corpuscular Hemoglobin 28.3 Mean Corpuscular Hemoglobin 33.6 Concent Red Cell Distribution Width 14.4 Platelet Count 187 Mean Platelet Volume 8.5 Neutrophils (%) (Auto) 80.6 Lymphocytes (%) (Auto) 9.5 Monocytes (%) (Auto) 9.2 Eosinophils (%) (Auto) 0.4 Basophils (%) (Auto) 0.3 Neutrophils # (Auto) 11.7 Lymphocytes # (Auto) 1.4 Monocytes # (Auto) 1.3 Eosinophils # (Auto) 0.1 Basophils # (Auto) 0.0 CBC Comment DIFF FINAL Differential Comment Urine Color YELLOW Urine Turbidity CLEAR Urine pH 6.0 Urine Specific [place] 1.017 Urine Protein 30 Urine Glucose (UA) 1000 Urine Ketones TRACE Urine Occult Blood TRACE Urine Nitrite NEG Urine Bilirubin NEG Urine Urobilinogen LESS THAN 2.0 Urine Leukocyte Esterase TRACE Urine RBC 1 Urine WBC 1 Urine Squamous Epithelial <1 Cells Urine Hyaline Casts 4 Microscopic Urinalysis Comment CULT NOT INDICATED Sodium Level 142 Potassium Level 3.9 Chloride Level 107 Carbon Dioxide Level 29.6 Anion Gap 5 Blood Urea Nitrogen 22 Creatinine 0.97 Estimat Glomerular Filtration 74 Rate Random Glucose 201 Calcium Level 8.2 Total Bilirubin 0.4 Aspartate Amino Transf 34 (AST/SGOT) Alanine Aminotransferase 19 (ALT/SGPT) Alkaline Phosphatase 71 Total Protein 6.5 Albumin 3.2 Result Diagram: 01/06/17 3744 01/06/17 3300 Assessment and Plan Problem List: (1) Status post total hip replacement, right ICD Code: Z96.641 Status: Acute Plan: The patient has been seen by orthopedic surgery with recommendation to continue physical therapy. Resume physical therapy. His biggest issue is not able to get in and out of his recliner which he has been sleeping in for the past 10 years Discussed with case management. Will attempt to get him a hospital bed to help with mobility at home. He is unlikely to get qualified for custodial facility placement. Continue daily physical therapy. Lovenox for DVT prophylaxis (2) Dependent for activity ICD Code: Z74.1 Status: Acute Plan: See above (3) Osteoarthritis of right hip ICD Code: M16.11 Status: Acute Plan: Status post hip replacement as above Pain control (4) Diabetes ICD Code: E11.9 Status: Acute Plan: Continue glipizide Diabetic diet (5) Hypertension ICD Code: I10 Status: Acute Plan: Continue Coreg and clonidine (6) Dehydration ICD Code: E86.0 Status: Acute Plan: Patient has received a liter of IV fluid. He is drinking appropriately. Discussed Condition With RN and behavioral health case manager. Citlali Ma MD January 07, 2017 11:05
[2017-01-07] MEDS ORDERED: HOSP BED1 (11:07)
[2017-01-07 11:55] VITALS: BP 188/91; PULSE 68; RESP 19; TEMP 97; O2SAT 95
[2017-01-07] MEDS: PANTOPRAZOLE SOD 20 MG DELAYED RELEASE TAB PO SCH (12:00)
[2017-01-07] MEDS: ALBUTEROL SULFATE 90 MCG/ACT HFA 18 GM INHALER INH SCH ×3 (13:00→21:10)
[2017-01-07 15:30] VITALS: BP 188/80; PULSE 70; RESP 19; TEMP 96.3; O2SAT 95
[2017-01-07] MEDS: cloNIDine HCL 0.1 MG TAB PO SCH (16:33)
[2017-01-07] MEDS: glipiZIDE 10 MG TAB PO SCH (16:33)
[2017-01-07 17:30] VITALS: BP 155/76; PULSE 62
[2017-01-07 19:42] VITALS: BP 132/67; PULSE 70; RESP 19; TEMP 96.6; O2SAT 94
[2017-01-07 19:59] LABS: BLOOD, URINE SMALL (NEG); COMMENT (UR) CULTURE INDICATED; CULTURE IF INDICATED CULTURE INDICATED; GLUCOSE,URINE 1000 mg/dL (NEG); KETONE, URINE NEG (NEG); MUCUS URINE FEW /lpf (OCC); NITRITE,URINE NEG (NEG); SQUAMOUS EPITHELIAL CELL URINE <1 /hpf (0-5); URINE COLOR YELLOW (YELLW/STRAW)
[2017-01-07] MEDS: POLYETHYLENE GLYCOL 17 GM PKG PO SCH (21:03)
[2017-01-07] MEDS: DOCUSATE SODIUM 50 MG/SENNA 8.6 MG TAB PO SCH (21:05)
[2017-01-07] MEDS: CARVEDILOL 3.125 MG TAB PO SCH (21:05)
[2017-01-07] MEDS: NIACIN 500 MG EXTENDED RELEASE TAB PO SCH (21:05)
[2017-01-07] MEDS: SODIUM CHLORIDE 0.9% FLUSH 10 ML FLUSH IV FLUSH SCH (21:05)
[2017-01-07] MEDS: PRAVASTATIN SOD 20 MG TAB PO SCH (21:05)
[2017-01-07 23:16] VITALS: BP 151/94; PULSE 60; RESP 19; TEMP 96.5; O2SAT 95
[2017-01-08] MEDS: oxyCODONE/ACETAMINOPHEN 10 MG/325 MG TAB PO PRN ×4 (03:13→20:56)
[2017-01-08 03:18] VITALS: BP 174/96; PULSE 70; RESP 19; TEMP 96.9; O2SAT 96
[2017-01-08] MEDS: glipiZIDE 10 MG TAB PO SCH ×2 (07:25→17:09)
[2017-01-08 07:47] VITALS: BP 133/67; PULSE 70; RESP 18; TEMP 96.5; O2SAT 96
[2017-01-08] MEDS: ENOXAPARIN SODIUM 40 MG/0.4 ML SYRINGE SQ SCH (09:34)
[2017-01-08] MEDS: FUROSEMIDE 20 MG TAB PO SCH (09:34)
[2017-01-08] MEDS: PANTOPRAZOLE SOD 20 MG DELAYED RELEASE TAB PO SCH (09:35)
[2017-01-08] MEDS: CARVEDILOL 3.125 MG TAB PO SCH ×2 (09:35→20:48)
[2017-01-08] MEDS: SODIUM CHLORIDE 0.9% FLUSH 10 ML FLUSH IV FLUSH SCH ×2 (09:36→20:49)
[2017-01-08] MEDS: DOCUSATE SODIUM 50 MG/SENNA 8.6 MG TAB PO SCH ×2 (09:36→20:48)
[2017-01-08] MEDS: ALBUTEROL SULFATE 90 MCG/ACT HFA 18 GM INHALER INH SCH ×4 (09:36→20:49)
[2017-01-08] MEDS: cloNIDine HCL 0.1 MG TAB PO SCH ×2 (09:36→20:48)
[2017-01-08] MEDS: TIOTROPIUM BROMIDE 18 MCG INH INH SCH (09:37)
[2017-01-08 11:54] VITALS: BP 182/96; PULSE 62; RESP 18; TEMP 96.7; O2SAT 95
[2017-01-08 16:15] VITALS: BP 161/74; PULSE 72; RESP 18; TEMP 95.6; O2SAT 96
[2017-01-08 17:07] LABS: AUTOMATED NEUTROPHIL # 7.2 TH/MM3 (1.8-7.7); BASOPHIL % 0.5 % (0.0-2.0); EOSINOPHIL # 0.4 TH/MM3 (0-0.4); EOSINOPHIL % 3.9 % (0.0-4.0); HEMATOCRIT 34.6 % (39.0-51.0); HEMO FLAGS DIFF FINAL; LYMPH % 14.1 % (9.0-44.0); LYMPHOCYTE # 1.4 TH/MM3 (1.0-4.8); MEAN CORPUSCULAR HEMOGLOBIN 27.9 PG (27.0-34.0); MEAN CORPUSCULAR HGB CONC 32.9 % (32.0-36.0); MONO % 7.9 % (0.0-8.0); NEUT % 73.6 % (16.0-70.0); PLATELET COUNT 212 TH/MM3 (150-450); RED BLOOD COUNT 4.07 MIL/MM3 (4.50-5.90); RED CELL DISTRIBUTION WIDTH 14.7 % (11.6-17.2); WHITE BLOOD COUNT 9.7 TH/MM3 (4.0-11.0)
[2017-01-08] MEDS: INSULIN ASPART SUPPLEMENTAL SCALE SQ SCH ×2 (17:17→20:59)
[2017-01-08 17:27] LABS: BICARBONATE 30.2 MEQ/L (21.0-32.0); POTASSIUM 4.6 MEQ/L (3.5-5.1)
[2017-01-08 19:00] VITALS: BP 183/97; PULSE 89; RESP 18; TEMP 97.9; O2SAT 94
[2017-01-08] MEDS: POLYETHYLENE GLYCOL 17 GM PKG PO SCH (20:48)
[2017-01-08] MEDS: PRAVASTATIN SOD 20 MG TAB PO SCH (20:48)
[2017-01-08] MEDS: NIACIN 500 MG EXTENDED RELEASE TAB PO SCH (20:48)
--- NOTE | 2017-01-08 23:52 | HHI.PR ---
Subjective Remarks Patient seen this morning. Reports that pain is controlled. Denies any nausea or vomiting. Denies any chest pain or shortness of breath Patient does report urethral burning for the past few days after Barrios removal. Denies any difficulty with urination however. Objective Vital Signs Date Time Temp Pulse Resp B/P Pulse Ox O2 Delivery O2 Flow Rate FiO2 01/08/17 19:00 97.9 89 18 183/97 94 01/08/17 16:15 95.6 72 18 161/74 96 01/08/17 11:54 96.7 62 18 182/96 95 01/08/17 07:47 96.5 70 18 133/67 96 01/08/17 03:18 96.9 70 19 174/96 96 I/O 01/07/17 01/07/17 01/07/17 01/08/17 01/08/17 01/08/17 07:00 15:00 23:00 07:00 15:00 23:00 Intake Total 240 ml 480 ml 360 ml 240 ml 720 ml Output Total 450 ml 250 ml 450 ml Balance -210 ml 480 ml 110 ml -210 ml 720 ml Intake Oral 240 ml 480 ml 360 ml 240 ml 720 ml Output Urine Total 450 ml 250 ml 450 ml # Voids 3 2 5 # Bowel Movements 0 0 0 0 2 Result Diagram: 01/08/17 1649 01/08/171648 Objective Remarks GENERAL: patient sitting up in chair. Appears comfortable. SKIN: Warm and dry. HEAD: Normocephalic. EYES: No scleral icterus. No injection or drainage. NECK: Supple, trachea midline. No JVD. CARDIOVASCULAR: Regular rate and rhythm without murmurs, gallops, or rubs. RESPIRATORY: Breath sounds equal bilaterally. No accessory muscle use. GASTROINTESTINAL: Abdomen soft, non-tender, nondistended. MUSCULOSKELETAL: No cyanosis, or edema. BACK: Nontender without obvious deformity. No CVA tenderness. A/P Assessment and Plan ==== 01/08/17 Urethritis. Urinalysis negative 24 hours Bactrim started. PSA slightly elevated but not concerning for prostatitis. -Patient started on sliding scale for diabetes Systolic blood pressure elevated in the 180s. Add amlodipine. //Status post total hip replacement, right - The patient has been seen by orthopedic surgery with recommendation to continue physical therapy. Resume physical therapy. His biggest issue is not able to get in and out of his recliner which he has been sleeping in for the past 10 years Discussed with case management. Will attempt to get him a hospital bed to help with mobility at home. He is unlikely to get qualified for intermediate facility placement. Continue daily physical therapy. Lovenox for DVT prophylaxis //Diabetes ICD Code: E11.9 Status: Acute Plan: Continue glipizide Diabetic diet //Hypertension ICD Code: I10 Status: Acute Plan: Continue Coreg and clonidine. Add amlodipine for high blood pressure //Dehydration Plan: Patient has received a liter of IV fluid. He is drinking appropriately. Discharge Planning patient will continue to work with physical therapy. Cheikh Adams MD January 08, 2017 23:52
[2017-01-09] VITALS (7 sets, daily range): BP systolic 121–183; BP diastolic 63–74; PULSE 61–72; RESP 17–19; TEMP 95.5–97.3; O2SAT 94–97
[2017-01-09] MEDS ORDERED: amLODIPine BESYLATE 5 MG TAB PO ONE
[2017-01-09] MEDS: CALCIUM CARBONATE 500 MG CHEWABLE TAB CHEW PRN (02:50)
[2017-01-09] MEDS: oxyCODONE/ACETAMINOPHEN 10 MG/325 MG TAB PO PRN ×4 (02:50→21:25)
[2017-01-09] MEDS: INSULIN ASPART SUPPLEMENTAL SCALE SQ SCH ×4 (05:54→20:30)
[2017-01-09] MEDS: glipiZIDE 10 MG TAB PO SCH ×2 (07:23→16:51)
[2017-01-09] MEDS: ENOXAPARIN SODIUM 40 MG/0.4 ML SYRINGE SQ SCH (10:09)
[2017-01-09] MEDS: cloNIDine HCL 0.1 MG TAB PO SCH ×2 (10:09→20:12)
[2017-01-09] MEDS: DOCUSATE SODIUM 50 MG/SENNA 8.6 MG TAB PO SCH ×2 (10:09→20:12)
[2017-01-09] MEDS: FUROSEMIDE 20 MG TAB PO SCH (10:09)
[2017-01-09] MEDS: PANTOPRAZOLE SOD 20 MG DELAYED RELEASE TAB PO SCH (10:09)
[2017-01-09] MEDS: CARVEDILOL 3.125 MG TAB PO SCH ×2 (10:09→20:12)
[2017-01-09] MEDS: SULFAMETHOXAZOLE-TRIMETHOPRIM DS 800-160 MG TAB PO SCH ×2 (10:09→20:12)
[2017-01-09] MEDS: amLODIPine BESYLATE 5 MG TAB PO SCH (10:09)
[2017-01-09] MEDS: ALBUTEROL SULFATE 90 MCG/ACT HFA 18 GM INHALER INH SCH ×4 (10:10→20:12)
[2017-01-09] MEDS: TIOTROPIUM BROMIDE 18 MCG INH INH SCH (10:10)
[2017-01-09] MEDS: SODIUM CHLORIDE 0.9% FLUSH 10 ML FLUSH IV FLUSH SCH ×2 (10:16→21:00)
--- NOTE | 2017-01-09 13:32 | HHI.PR ---
Subjective Remarks Patient sitting up in chair resting. Denies any new complaints. States he may feel ok to go home in a few days. He is requesting a hospital bed or recliner at home. BM today, eating well, still complaining of dysuria. Objective Vitals Vital Signs Date Time Temp Pulse Resp B/P Pulse Ox O2 Delivery O2 Flow Rate FiO2 01/09/17 11:30 95.9 65 19 121/71 97 01/09/17 11:08 16 01/09/17 07:28 95.7 62 19 157/73 94 01/09/17 04:00 96.2 61 17 129/69 94 01/09/17 00:05 97.3 72 17 142/70 96 01/08/17 19:00 97.9 89 18 183/97 94 01/08/17 16:15 95.6 72 18 161/74 96 I/O 01/08/17 01/08/17 01/08/17 01/09/17 01/09/17 01/09/17 07:00 15:00 23:00 07:00 15:00 23:00 Intake Total 240 ml 720 ml 480 ml 240 ml Output Total 450 ml 600 ml Balance -210 ml 720 ml -120 ml 240 ml Intake Oral 240 ml 720 ml 480 ml 240 ml Output Urine Total 450 ml 600 ml # Voids 5 5 # Bowel Movements 0 2 0 0 Result Diagram: 01/08/17 1649 01/08/171648 Objective Remarks GENERAL: patient sitting up in chair. Appears comfortable. Resting SKIN: Warm and dry. HEAD: Normocephalic. EYES: No scleral icterus. No injection or drainage. NECK: Supple, trachea midline. No JVD. CARDIOVASCULAR: Regular rate and rhythm without murmurs, gallops, or rubs. RESPIRATORY: Breath sounds equal bilaterally. No accessory muscle use. GASTROINTESTINAL: Abdomen soft, non-tender, nondistended. MUSCULOSKELETAL: No cyanosis, or edema. BACK: Nontender without obvious deformity. No CVA tenderness. Medications and IVs Current Medications Medications (Trade) Dose Ordered Sig/Agustin Route Start Time Stop Time Status Last Admin (Percocet 10-325 Mg) 1 tab Q4H PRN PO 01/06/17 16:15 01/08/17 03:13 (Percocet 10-325 Mg) 2 tab Q4H PRN PO 01/06/17 16:15 01/09/17 10:08 (Coreg) 3.125 mg BID PO 01/07/17 21:00 01/09/17 10:09 (Catapres) 0.1 mg BID PO 01/07/17 21:00 01/09/17 10:09 (Lovenox Inj) 40 mg DAILY SQ 01/08/17 09:00 01/09/17 10:09 (Lasix) 10 mg DAILY PO 01/08/17 09:00 01/09/17 10:09 (Glucotrol) 10 mg BIDAC PO 01/07/17 16:00 01/09/17 07:23 (Pravachol) 20 mg HS PO 01/07/17 21:00 01/08/17 20:48 (Ventolin Hfa Inh) 1 puff QID INH 01/07/17 13:00 01/09/17 10:10 (Slo-Niacin) 500 mg HS PO 01/07/17 21:00 01/08/17 20:48 (Protonix) 20 mg DAILY PO 01/07/17 12:00 01/09/17 10:09 (Pill Splitter) 1 ea UNSCH PRN OTHER 01/07/17 10:15 (Spiriva Inh) 18 mcg DAILY INH 01/08/17 09:00 01/09/17 10:10 (NS Flush) 2 ml UNSCH PRN IV FLUSH 01/07/17 10:15 (NS Flush) 2 ml BID IV FLUSH 01/07/17 21:00 01/09/17 10:16 (Zofran Inj) 4 mg Q6H PRN IVP 01/07/17 10:15 (Narcan Inj) 0.4 mg UNSCH PRN IV 01/07/17 10:15 (Kori-Colace) 1 tab BID PO 01/07/17 21:00 01/09/17 10:09 (Milk Of Magnesia Liq) 30 ml Q12H PRN PO 01/07/17 10:15 01/09/17 02:50 (Senokot) 17.2 mg Q12H PRN PO 01/07/17 10:15 01/07/17 12:05 (Dulcolax Supp) 10 mg DAILY PRN RECTAL 01/07/17 10:15 01/08/17 03:13 (Lactulose Liq) 30 ml DAILY PRN PO 01/07/17 10:15 (Miralax) 17 gm HS PO 01/07/17 21:00 01/08/17 20:48 (Catapres) 0.1 mg Q6H PRN PO 01/07/17 10:30 01/08/17 12:03 (Bactrim Ds 800-160 Mg) 1 tab Q12HR PO 01/09/17 09:00 01/09/17 10:09 (Norvasc) 5 mg DAILY PO 01/09/17 09:00 01/09/17 10:09 (Tums Chew) 500 mg Q2H PRN CHEW 01/09/17 02:45 01/09/17 02:50 A/P Problem List: (1) Status post total hip replacement, right ICD Code: Z96.641 Status: Acute (2) Dependent for activity ICD Code: Z74.1 Status: Acute (3) Osteoarthritis of right hip ICD Code: M16.11 Status: Acute (4) Diabetes ICD Code: E11.9 Status: Acute (5) Hypertension ICD Code: I10 Status: Acute (6) Dehydration ICD Code: E86.0 Status: Acute Assessment and Plan Urethritis. Urinalysis negative 48 hours. PSA slightly elevated but not concerning for prostatitis. - Bactrim PO started. Hypertension, improved -Cont amlodipine.Continue Coreg and clonidine. Status post total hip replacement, right - The patient has been seen by orthopedic surgery with recommendation to continue physical therapy. Resume physical therapy. His biggest issue is not able to get in and out of his recliner which he has been sleeping in for the past 10 years Discussed with case management. Will attempt to get him a hospital bed to help with mobility at home. He is unlikely to get qualified for senior care facility placement. Continue daily physical therapy. Diabetes, Acute -Continue glipizide -Diabetic diet -Patient started on sliding scale for diabetes Dehydration -Encourage oral intake DVT prophylaxis: Lovenox Discussed with Dr. Adams Discharge Planning 1-2 days Problem Qualifiers (1) Diabetes: Edilia Willard January 09, 2017 13:32 Cheikh Adams MD Jan 12, 2017 08:05
[2017-01-09] MEDS: POLYETHYLENE GLYCOL 17 GM PKG PO SCH (20:11)
[2017-01-09] MEDS: PRAVASTATIN SOD 20 MG TAB PO SCH (20:12)
[2017-01-09] MEDS: NIACIN 500 MG EXTENDED RELEASE TAB PO SCH (20:13)
[2017-01-10] MEDS: oxyCODONE/ACETAMINOPHEN 10 MG/325 MG TAB PO PRN ×6 (01:27→20:13)
--- NOTE | 2017-01-10 07:13 | HHI.FPPN ---
Subjective Remarks c/o pain d/w RN d/w Case [facility] Objective Vitals Vital Signs Date Time Temp Pulse Resp B/P Pulse Ox O2 Delivery O2 Flow Rate FiO2 01/09/17 23:42 96.7 65 18 131/63 94 01/09/17 19:24 97.0 63 19 183/74 95 01/09/17 17:52 18 01/09/17 15:54 95.5 66 19 125/65 95 01/09/17 11:30 95.9 65 19 121/71 97 01/09/17 07:28 95.7 62 19 157/73 94 I/O 01/09/17 01/09/17 01/09/17 01/10/17 01/10/17 01/10/17 07:00 15:00 23:00 07:00 15:00 23:00 Intake Total 240 ml 500 ml 360 ml 360 ml Output Total 400 ml 400 ml 400 ml Balance 240 ml 100 ml -40 ml -40 ml Intake Oral 240 ml 500 ml 360 ml 360 ml Output Urine Total 400 ml 400 ml 400 ml # Voids 5 1 # Bowel Movements 0 0 0 0 Result Diagram: 01/08/17 1649 01/08/171648 Objective Remarks GENERAL: SKIN: Warm and dry. incison c/d/i HEAD: Atraumatic. Normocephalic. EYES: Pupils equal and round. No scleral icterus. No injection or drainage. ENT: No nasal bleeding or discharge. Mucous membranes pink and moist. NECK: Trachea midline. No JVD. CARDIOVASCULAR: Regular rate and rhythm. RESPIRATORY: No accessory muscle use. Clear to auscultation. Breath sounds equal bilaterally. GASTROINTESTINAL: Abdomen soft, non-tender, nondistended. Hepatic and splenic margins not palpable. MUSCULOSKELETAL: Extremities without clubbing, cyanosis, or edema. No obvious deformities. NEUROLOGICAL: Awake and alert. No obvious cranial nerve deficits. Motor grossly within normal limits. 3 out of 5 muscle strength in the arms and legs. Normal speech. PSYCHIATRIC: Appropriate mood and affect; insight and judgment normal. Medications and IVs Current Medications Medications (Trade) Dose Ordered Sig/Agustin Route Start Time Stop Time Status Last Admin (Percocet 10-325 Mg) 1 tab Q4H PRN PO 01/06/17 16:15 01/08/17 03:13 (Percocet 10-325 Mg) 2 tab Q4H PRN PO 01/06/17 16:15 01/10/17 05:27 (Coreg) 3.125 mg BID PO 01/07/17 21:00 01/09/17 20:12 (Catapres) 0.1 mg BID PO 01/07/17 21:00 01/09/17 20:12 (Lovenox Inj) 40 mg DAILY SQ 01/08/17 09:00 01/09/17 10:09 (Lasix) 10 mg DAILY PO 01/08/17 09:00 01/09/17 10:09 (Glucotrol) 10 mg BIDAC PO 01/07/17 16:00 01/10/17 07:52 (Pravachol) 20 mg HS PO 01/07/17 21:00 01/09/17 20:12 (Ventolin Hfa Inh) 1 puff QID INH 01/07/17 13:00 01/09/17 20:12 (Slo-Niacin) 500 mg HS PO 01/07/17 21:00 01/09/17 20:13 (Protonix) 20 mg DAILY PO 01/07/17 12:00 01/09/17 10:09 (Pill Splitter) 1 ea UNSCH PRN OTHER 01/07/17 10:15 (Spiriva Inh) 18 mcg DAILY INH 01/08/17 09:00 01/09/17 10:10 (NS Flush) 2 ml UNSCH PRN IV FLUSH 01/07/17 10:15 (NS Flush) 2 ml BID IV FLUSH 01/07/17 21:00 01/09/17 21:00 (Zofran Inj) 4 mg Q6H PRN IVP 01/07/17 10:15 (Narcan Inj) 0.4 mg UNSCH PRN IV 01/07/17 10:15 (Kori-Colace) 1 tab BID PO 01/07/17 21:00 01/09/17 20:12 (Milk Of Magnesia Liq) 30 ml Q12H PRN PO 01/07/17 10:15 01/09/17 02:50 (Senokot) 17.2 mg Q12H PRN PO 01/07/17 10:15 01/07/17 12:05 (Dulcolax Supp) 10 mg DAILY PRN RECTAL 01/07/17 10:15 01/08/17 03:13 (Lactulose Liq) 30 ml DAILY PRN PO 01/07/17 10:15 (Miralax) 17 gm HS PO 01/07/17 21:00 01/09/17 20:11 (Catapres) 0.1 mg Q6H PRN PO 01/07/17 10:30 01/08/17 12:03 (Bactrim Ds 800-160 Mg) 1 tab Q12HR PO 01/09/17 09:00 01/09/17 20:12 (Norvasc) 5 mg DAILY PO 01/09/17 09:00 01/09/17 10:09 (Tums Chew) 500 mg Q2H PRN CHEW 01/09/17 02:45 01/09/17 02:50 A/P Problem List: (1) Status post total hip replacement, right Status: Acute Plan: obs admit unsafe dc still at this point d/w CM (2) Dehydration Status: Acute (3) Diabetes Status: Acute (4) Hypertension Status: Acute (5) Dependent for activity Status: Acute (6) Debility Status: Acute (7) Osteoarthritis of right hip Status: Acute Problem Qualifiers (1) Diabetes: Fan Daugherty MD January 10, 2017 07:13
[2017-01-10] MEDS: glipiZIDE 10 MG TAB PO SCH ×2 (07:52→15:51)
[2017-01-10] MEDS: INSULIN ASPART SUPPLEMENTAL SCALE SQ SCH ×4 (07:56→20:17)
[2017-01-10 08:00] VITALS: BP 165/79; PULSE 60; RESP 20; TEMP 95.7; O2SAT 99
[2017-01-10] MEDS: SODIUM CHLORIDE 0.9% FLUSH 10 ML FLUSH IV FLUSH SCH ×2 (09:39→20:14)
[2017-01-10] MEDS: SULFAMETHOXAZOLE-TRIMETHOPRIM DS 800-160 MG TAB PO SCH ×2 (09:39→20:12)
[2017-01-10] MEDS: DOCUSATE SODIUM 50 MG/SENNA 8.6 MG TAB PO SCH ×2 (09:39→20:12)
[2017-01-10] MEDS: ALBUTEROL SULFATE 90 MCG/ACT HFA 18 GM INHALER INH SCH ×4 (09:39→20:11)
[2017-01-10] MEDS: amLODIPine BESYLATE 5 MG TAB PO SCH (09:40)
[2017-01-10] MEDS: TIOTROPIUM BROMIDE 18 MCG INH INH SCH (09:40)
[2017-01-10] MEDS: cloNIDine HCL 0.1 MG TAB PO SCH ×2 (09:40→20:12)
[2017-01-10] MEDS: CARVEDILOL 3.125 MG TAB PO SCH ×2 (09:41→20:12)
[2017-01-10] MEDS: ENOXAPARIN SODIUM 40 MG/0.4 ML SYRINGE SQ SCH (09:41)
[2017-01-10] MEDS: FUROSEMIDE 20 MG TAB PO SCH (09:41)
[2017-01-10] MEDS: PANTOPRAZOLE SOD 20 MG DELAYED RELEASE TAB PO SCH (09:41)
[2017-01-10 11:51] VITALS: BP 121/63; PULSE 60; RESP 16; TEMP 97.1; O2SAT 97
--- NOTE | 2017-01-10 14:15 | PD.ORT.PN ---
Subjective Post Op Day #: 6 Subjective Remarks Patient is OOB in chair in NAD. Patient reports every day he feels stronger and is able to do more. Patient notes ambulating 2 times today and is having less difficulty with transfers. His biggest complaint is sitting up due to chronic back pain. Objective Vitals Vital Signs Date Time Temp Pulse Resp B/P Pulse Ox O2 Delivery O2 Flow Rate FiO2 01/10/17 11:51 97.1 60 16 121/63 97 01/10/17 08:00 95.7 60 20 165/79 99 01/09/17 23:42 96.7 65 18 131/63 94 01/09/17 19:24 97.0 63 19 183/74 95 01/09/17 17:52 18 01/09/17 15:54 95.5 66 19 125/65 95 I/O 01/09/17 01/09/17 01/09/17 01/10/17 01/10/17 01/10/17 07:00 15:00 23:00 07:00 15:00 23:00 Intake Total 240 ml 500 ml 360 ml 360 ml Output Total 400 ml 400 ml 400 ml Balance 240 ml 100 ml -40 ml -40 ml Intake Oral 240 ml 500 ml 360 ml 360 ml Output Urine Total 400 ml 400 ml 400 ml # Voids 5 1 # Bowel Movements 0 0 0 0 Result Diagram: 01/08/17 1649 01/08/17 1649 Procedures Right YASHIRA Objective Remarks The right hip incision has scant serous drainage. There is no erythema. There is mild swelling about the hip. His calf has no tenderness. He can move the toes. Decreased sensation to touch about the bilateral lower extremities due to neuropathy. Assessment & Plan Ortho Post Op Day #: 6 Problem List: Assessment and Plan Postop day #6 status post right total hip arthroplasty. Patient unable to go to SNF secondary to his insurance and admission status. Patient receiving PT for lower extremity strengthening, gait training, and transfer techniques. Patient has chronic back pain that limits his ability to sit from a supine position. Patient would benefit from a hospital bed to help elevate him to a more upright position for transfers secondary to his chronic back pain and recent YASHIRA. Case management to work on obtaining a hospital bed. Continue pain management. Will keep patient admitted until strong enough to be discharged home independently. Patient will f/u with Dr. Wilder in 1-2 weeks. Raji Rangel January 10, 2017 14:15
--- NOTE | 2017-01-10 14:16 | HHI.DCPOC ---
Discharge Care Plan Diagnosis: (1) Status post total hip replacement, right (2) Osteoarthritis of right hip Your Health Problems Are: Difficulty with ADL Goals to Promote Your Health * To prevent worsening of your condition and complications * To maintain your health at the optimal level Directions to Meet Your Goals Take your medications as prescribed Follow your dietary instruction Follow activity as directed Keep your appointments as scheduled Take your immunizations and boosters as scheduled If your symptoms worsen call your PCP, if no PCP go to Urgent Care Center or Emergency Room Smoking is Dangerous to Your Health. Avoid second hand smoke Call the 24-hour hour crisis hotline for domestic abuse at Raji Rangel January 10, 2017 14:16
--- NOTE | 2017-01-10 14:17 | HHI.FF ---
Face to Face Verification Diagnosis: (1) Osteoarthritis of right hip (2) Status post total hip replacement, right Physical Therapy Gait training, Transfer training, bed to chair Hip: Total hip Right LE Weight Bearing: WB as tolerated Right LE Range of Motion: Active ROM Additional Instructions Daily physical therapy with home health aid Nursing Nursing: Lara teaching, Dressing changes Dressing Changes: Daily dressing change I have seen patient Ton Anna on 01/10/17. My clinical findings support the need for the requested home health care services because: Deconditioned w/ increased weakness Limited ability to care for self High risk of falls I certify that my clinical findings support that this patient is homebound because: Post-op weakness Unsteady gait/balance Unsafe to leave home unassisted Raji Rangel January 10, 2017 14:17
[2017-01-10 16:00] VITALS: BP 141/65; PULSE 63; RESP 16; TEMP 96.3; O2SAT 98
[2017-01-10] MEDS: PRAVASTATIN SOD 20 MG TAB PO SCH (20:12)
[2017-01-10] MEDS: NIACIN 500 MG EXTENDED RELEASE TAB PO SCH (20:12)
[2017-01-10] MEDS: POLYETHYLENE GLYCOL 17 GM PKG PO SCH (20:12)
[2017-01-10 20:20] VITALS: BP 163/70; PULSE 67; RESP 17; TEMP 96.2; O2SAT 99
[2017-01-11 00:20] VITALS: BP 142/70; PULSE 57; RESP 17; TEMP 96.1; O2SAT 94
[2017-01-11] MEDS: glipiZIDE 10 MG TAB PO SCH ×2 (06:06→17:33)
[2017-01-11] MEDS: INSULIN ASPART SUPPLEMENTAL SCALE SQ SCH ×4 (06:07→21:13)
[2017-01-11 08:00] VITALS: BP 146/68; PULSE 64; RESP 20; TEMP 97; O2SAT 97
[2017-01-11] MEDS: TIOTROPIUM BROMIDE 18 MCG INH INH SCH (08:26)
[2017-01-11] MEDS: ALBUTEROL SULFATE 90 MCG/ACT HFA 18 GM INHALER INH SCH ×4 (08:26→21:04)
[2017-01-11] MEDS: DOCUSATE SODIUM 50 MG/SENNA 8.6 MG TAB PO SCH ×2 (08:27→21:03)
[2017-01-11] MEDS: SULFAMETHOXAZOLE-TRIMETHOPRIM DS 800-160 MG TAB PO SCH ×2 (08:27→21:03)
[2017-01-11] MEDS: cloNIDine HCL 0.1 MG TAB PO SCH ×2 (08:27→21:03)
[2017-01-11] MEDS: CARVEDILOL 3.125 MG TAB PO SCH ×2 (08:27→21:04)
[2017-01-11] MEDS: ENOXAPARIN SODIUM 40 MG/0.4 ML SYRINGE SQ SCH (08:27)
[2017-01-11] MEDS: amLODIPine BESYLATE 5 MG TAB PO SCH (08:28)
[2017-01-11] MEDS: PANTOPRAZOLE SOD 20 MG DELAYED RELEASE TAB PO SCH (08:28)
[2017-01-11] MEDS: FUROSEMIDE 20 MG TAB PO SCH (08:28)
[2017-01-11] MEDS: SODIUM CHLORIDE 0.9% FLUSH 10 ML FLUSH IV FLUSH SCH ×2 (08:29→21:00)
[2017-01-11] MEDS: oxyCODONE/ACETAMINOPHEN 10 MG/325 MG TAB PO PRN ×2 (08:29→12:04)
--- NOTE | 2017-01-11 09:22 | HHI.FPPN ---
Subjective Remarks VERY WEAK C/O HIP PAIN DESHEVELED UNABLE TO GO HOME D/W RN D/W CM Objective Vitals Vital Signs Date Time Temp Pulse Resp B/P Pulse Ox O2 Delivery O2 Flow Rate FiO2 01/11/17 08:00 97.0 64 20 146/68 97 01/11/17 00:20 96.1 57 17 142/70 94 01/10/17 20:20 96.2 67 17 163/70 99 01/10/17 16:00 96.3 63 16 141/65 98 01/10/17 11:51 97.1 60 16 121/63 97 I/O 01/10/17 01/10/17 01/10/17 01/11/17 01/11/17 01/11/17 07:00 15:00 23:00 07:00 15:00 23:00 Intake Total 360 ml 480 ml 480 ml 240 ml Output Total 400 ml 550 ml 300 ml 1550 ml Balance -40 ml -70 ml 180 ml -1310 ml Intake Oral 360 ml 480 ml 480 ml 240 ml Output Urine Total 400 ml 550 ml 300 ml 1550 ml # Voids 1 # Bowel Movements 0 1 0 1 Result Diagram: 01/08/17 1649 01/08/171648 Objective Remarks GENERAL: SKIN: Warm and dry. incison c/d/i HEAD: Atraumatic. Normocephalic. EYES: Pupils equal and round. No scleral icterus. No injection or drainage. ENT: No nasal bleeding or discharge. Mucous membranes pink and moist. NECK: Trachea midline. No JVD. CARDIOVASCULAR: Regular rate and rhythm. RESPIRATORY: No accessory muscle use. Clear to auscultation. Breath sounds equal bilaterally. GASTROINTESTINAL: Abdomen soft, non-tender, nondistended. Hepatic and splenic margins not palpable. MUSCULOSKELETAL: Extremities without clubbing, cyanosis, or edema. No obvious deformities. NEUROLOGICAL: Awake and alert. No obvious cranial nerve deficits. Motor grossly within normal limits. 3 out of 5 muscle strength in the arms and legs. Normal speech. PSYCHIATRIC: Appropriate mood and affect; insight and judgment normal. Medications and IVs Current Medications Medications (Trade) Dose Ordered Sig/Agustin Route Start Time Stop Time Status Last Admin (Percocet 10-325 Mg) 1 tab Q4H PRN PO 01/06/17 16:15 01/11/17 08:29 (Percocet 10-325 Mg) 2 tab Q4H PRN PO 01/06/17 16:15 01/10/17 19:23 (Coreg) 3.125 mg BID PO 01/07/17 21:00 01/11/17 08:27 (Catapres) 0.1 mg BID PO 01/07/17 21:00 01/11/17 08:27 (Lovenox Inj) 40 mg DAILY SQ 01/08/17 09:00 01/11/17 08:27 (Lasix) 10 mg DAILY PO 01/08/17 09:00 01/11/17 08:28 (Glucotrol) 10 mg BIDAC PO 01/07/17 16:00 01/11/17 06:06 (Pravachol) 20 mg HS PO 01/07/17 21:00 01/10/17 20:12 (Ventolin Hfa Inh) 1 puff QID INH 01/07/17 13:00 01/11/17 08:26 (Slo-Niacin) 500 mg HS PO 01/07/17 21:00 01/10/17 20:12 (Protonix) 20 mg DAILY PO 01/07/17 12:00 01/11/17 08:28 (Pill Splitter) 1 ea UNSCH PRN OTHER 01/07/17 10:15 (Spiriva Inh) 18 mcg DAILY INH 01/08/17 09:00 01/11/17 08:26 (NS Flush) 2 ml UNSCH PRN IV FLUSH 01/07/17 10:15 (NS Flush) 2 ml BID IV FLUSH 01/07/17 21:00 01/10/17 20:14 (Zofran Inj) 4 mg Q6H PRN IVP 01/07/17 10:15 (Narcan Inj) 0.4 mg UNSCH PRN IV 01/07/17 10:15 (Kori-Colace) 1 tab BID PO 01/07/17 21:00 01/11/17 08:27 (Milk Of Magnesia Liq) 30 ml Q12H PRN PO 01/07/17 10:15 01/09/17 02:50 (Senokot) 17.2 mg Q12H PRN PO 01/07/17 10:15 01/07/17 12:05 (Dulcolax Supp) 10 mg DAILY PRN RECTAL 01/07/17 10:15 01/08/17 03:13 (Lactulose Liq) 30 ml DAILY PRN PO 01/07/17 10:15 (Miralax) 17 gm HS PO 01/07/17 21:00 01/10/17 20:12 (Catapres) 0.1 mg Q6H PRN PO 01/07/17 10:30 01/08/17 12:03 (Bactrim Ds 800-160 Mg) 1 tab Q12HR PO 01/09/17 09:00 01/11/17 08:27 (Norvasc) 5 mg DAILY PO 01/09/17 09:00 01/11/17 08:28 (Tums Chew) 500 mg Q2H PRN CHEW 01/09/17 02:45 01/09/17 02:50 A/P Problem List: (1) Status post total hip replacement, right Status: Acute Plan: Needs hospital bed for elevating lift to get out of bed being that he is debilitated after total hip repair. [facility] obs admit unsafe dc still at this point d/w CM (2) Dehydration Status: Acute (3) Diabetes Status: Acute (4) Hypertension Status: Acute (5) Dependent for activity Status: Acute (6) Debility Status: Acute (7) Osteoarthritis of right hip Status: Acute Problem Qualifiers (1) Diabetes: Fan Daugherty MD January 11, 2017 09:22
[2017-01-11 12:00] VITALS: BP 104/67; PULSE 60; RESP 18; TEMP 97.7; O2SAT 97
[2017-01-11 16:00] VITALS: BP 133/77; PULSE 67; RESP 18; TEMP 95; O2SAT 97
[2017-01-11 20:30] VITALS: BP 164/78; PULSE 63; RESP 18; TEMP 96.2; O2SAT 96
[2017-01-11] MEDS: NIACIN 500 MG EXTENDED RELEASE TAB PO SCH (21:03)
[2017-01-11] MEDS: PRAVASTATIN SOD 20 MG TAB PO SCH (21:03)
[2017-01-11] MEDS: POLYETHYLENE GLYCOL 17 GM PKG PO SCH (21:04)
[2017-01-12] VITALS (7 sets, daily range): BP systolic 122–158; BP diastolic 63–75; PULSE 57–121; RESP 17–18; TEMP 95.4–98.3; O2SAT 93–98
[2017-01-12] MEDS: oxyCODONE/ACETAMINOPHEN 10 MG/325 MG TAB PO PRN ×3 (05:22→13:48)
[2017-01-12] MEDS: INSULIN ASPART SUPPLEMENTAL SCALE SQ SCH ×4 (05:24→20:58)
[2017-01-12] MEDS: DOCUSATE SODIUM 50 MG/SENNA 8.6 MG TAB PO SCH ×2 (09:00→20:55)
[2017-01-12] MEDS: SULFAMETHOXAZOLE-TRIMETHOPRIM DS 800-160 MG TAB PO SCH ×2 (10:19→20:55)
[2017-01-12] MEDS: ALBUTEROL SULFATE 90 MCG/ACT HFA 18 GM INHALER INH SCH ×4 (10:19→20:56)
[2017-01-12] MEDS: amLODIPine BESYLATE 5 MG TAB PO SCH (10:19)
[2017-01-12] MEDS: CARVEDILOL 3.125 MG TAB PO SCH ×2 (10:19→20:55)
[2017-01-12] MEDS: SODIUM CHLORIDE 0.9% FLUSH 10 ML FLUSH IV FLUSH SCH ×2 (10:19→20:56)
[2017-01-12] MEDS: ENOXAPARIN SODIUM 40 MG/0.4 ML SYRINGE SQ SCH (10:19)
[2017-01-12] MEDS: TIOTROPIUM BROMIDE 18 MCG INH INH SCH (10:19)
[2017-01-12] MEDS: cloNIDine HCL 0.1 MG TAB PO SCH ×2 (10:20→20:55)
[2017-01-12] MEDS: FUROSEMIDE 20 MG TAB PO SCH (10:20)
[2017-01-12] MEDS: glipiZIDE 10 MG TAB PO SCH ×2 (10:21→18:47)
[2017-01-12] MEDS: PANTOPRAZOLE SOD 20 MG DELAYED RELEASE TAB PO SCH (10:21)
[2017-01-12] MEDS: ARTIFICIAL TEARS OPTH SOLN 15 ML BTL EACH EYE PRN (12:27)
--- NOTE | 2017-01-12 14:34 | HHI.FPPN ---
Subjective Remarks C/O HIP PAIN C/O WEAKNESS D/W P.T. D/W RN Objective Vitals Vital Signs Date Time Temp Pulse Resp B/P Pulse Ox O2 Delivery O2 Flow Rate FiO2 01/12/17 08:00 98.3 61 18 134/72 97 01/12/17 04:15 97.7 121 18 158/75 93 01/12/17 00:45 97.0 60 17 132/66 96 01/11/17 20:30 96.2 63 18 164/78 96 01/11/17 16:00 95.0 67 18 133/77 97 I/O 01/11/17 01/11/17 01/11/17 01/12/17 01/12/17 01/12/17 07:00 15:00 23:00 07:00 15:00 23:00 Intake Total 240 ml 1445 ml 480 ml 240 ml Output Total 1550 ml 1825 ml 1050 ml Balance -1310 ml -380 ml 480 ml -810 ml Intake Oral 240 ml 1445 ml 480 ml 240 ml Output Urine Total 1550 ml 1825 ml 1050 ml # Voids 5 1 1 # Bowel Movements 1 1 1 Result Diagram: 01/08/17 1649 01/08/17 164 Objective Remarks GENERAL: SKIN: Warm and dry. incison c/d/i HEAD: Atraumatic. Normocephalic. EYES: Pupils equal and round. No scleral icterus. No injection or drainage. ENT: No nasal bleeding or discharge. Mucous membranes pink and moist. NECK: Trachea midline. No JVD. CARDIOVASCULAR: Regular rate and rhythm. RESPIRATORY: No accessory muscle use. Clear to auscultation. Breath sounds equal bilaterally. GASTROINTESTINAL: Abdomen soft, non-tender, nondistended. Hepatic and splenic margins not palpable. MUSCULOSKELETAL: Extremities without clubbing, cyanosis, or edema. No obvious deformities. NEUROLOGICAL: Awake and alert. No obvious cranial nerve deficits. Motor grossly within normal limits. 3 out of 5 muscle strength in the arms and legs. Normal speech. PSYCHIATRIC: Appropriate mood and affect; insight and judgment normal. Medications and IVs Current Medications Medications (Trade) Dose Ordered Sig/Agustin Route Start Time Stop Time Status Last Admin (Percocet 10-325 Mg) 1 tab Q4H PRN PO 01/06/17 16:15 01/12/17 13:48 (Percocet 10-325 Mg) 2 tab Q4H PRN PO 01/06/17 16:15 01/11/17 12:04 (Coreg) 3.125 mg BID PO 01/07/17 21:00 01/12/17 10:19 (Catapres) 0.1 mg BID PO 01/07/17 21:00 01/12/17 10:20 (Lovenox Inj) 40 mg DAILY SQ 01/08/17 09:00 01/12/17 10:19 (Lasix) 10 mg DAILY PO 01/08/17 09:00 01/12/17 10:20 (Glucotrol) 10 mg BIDAC PO 01/07/17 16:00 01/12/17 10:21 (Pravachol) 20 mg HS PO 01/07/17 21:00 01/11/17 21:03 (Ventolin Hfa Inh) 1 puff QID INH 01/07/17 13:00 01/12/17 12:27 (Slo-Niacin) 500 mg HS PO 01/07/17 21:00 01/11/17 21:03 (Protonix) 20 mg DAILY PO 01/07/17 12:00 01/12/17 10:21 (Pill Splitter) 1 ea UNSCH PRN OTHER 01/07/17 10:15 (Spiriva Inh) 18 mcg DAILY INH 01/08/17 09:00 01/12/17 10:19 (NS Flush) 2 ml UNSCH PRN IV FLUSH 01/07/17 10:15 (NS Flush) 2 ml BID IV FLUSH 01/07/17 21:00 01/12/17 10:19 (Zofran Inj) 4 mg Q6H PRN IVP 01/07/17 10:15 (Narcan Inj) 0.4 mg UNSCH PRN IV 01/07/17 10:15 (Kori-Colace) 1 tab BID PO 01/07/17 21:00 01/11/17 21:03 (Milk Of Magnesia Liq) 30 ml Q12H PRN PO 01/07/17 10:15 01/09/17 02:50 (Senokot) 17.2 mg Q12H PRN PO 01/07/17 10:15 01/07/17 12:05 (Dulcolax Supp) 10 mg DAILY PRN RECTAL 5/27/17 10:15 01/08/17 03:13 (Lactulose Liq) 30 ml DAILY PRN PO 01/07/17 10:15 (Miralax) 17 gm HS PO 01/07/17 21:00 01/11/17 21:04 (Catapres) 0.1 mg Q6H PRN PO 01/07/17 10:30 01/08/17 12:03 (Bactrim Ds 800-160 Mg) 1 tab Q12HR PO 01/09/17 09:00 01/12/17 10:19 (Norvasc) 5 mg DAILY PO 01/09/17 09:00 01/12/17 10:19 (Tums Chew) 500 mg Q2H PRN CHEW 01/09/17 02:45 01/09/17 02:50 (Tears Naturale Opth Soln) 1 drop Q12H PRN EACH EYE 01/11/17 11:15 01/12/17 12:27 A/P Problem List: (1) Status post total hip replacement, right Status: Acute Plan: Needs hospital bed for elevating lift to get out of bed being that he is debilitated after total hip repair. Unable to go to [facility] facility. obs admit unsafe dc still at this point d/w CM (2) Dehydration Status: Acute (3) Diabetes Status: Acute (4) Hypertension Status: Acute (5) Dependent for activity Status: Acute (6) Debility Status: Acute (7) Osteoarthritis of right hip Status: Acute Problem Qualifiers (1) Diabetes: Fan Daugherty MD Jan 12, 2017 14:33
[2017-01-12] MEDS: PRAVASTATIN SOD 20 MG TAB PO SCH (20:55)
[2017-01-12] MEDS: NIACIN 500 MG EXTENDED RELEASE TAB PO SCH (20:55)
[2017-01-12] MEDS: POLYETHYLENE GLYCOL 17 GM PKG PO SCH (20:55)
[2017-01-13] MEDS: oxyCODONE/ACETAMINOPHEN 10 MG/325 MG TAB PO PRN ×3 (06:14→18:10)
[2017-01-13] MEDS: glipiZIDE 10 MG TAB PO SCH ×2 (06:14→16:44)
[2017-01-13] MEDS: INSULIN ASPART SUPPLEMENTAL SCALE SQ SCH ×4 (06:14→20:27)
[2017-01-13] MEDS: FUROSEMIDE 20 MG TAB PO SCH (07:18)
[2017-01-13] MEDS: SULFAMETHOXAZOLE-TRIMETHOPRIM DS 800-160 MG TAB PO SCH ×2 (07:18→20:23)
[2017-01-13] MEDS: PANTOPRAZOLE SOD 20 MG DELAYED RELEASE TAB PO SCH (07:19)
[2017-01-13] MEDS: CARVEDILOL 3.125 MG TAB PO SCH ×2 (07:19→20:23)
[2017-01-13] MEDS: amLODIPine BESYLATE 5 MG TAB PO SCH (07:19)
[2017-01-13] MEDS: cloNIDine HCL 0.1 MG TAB PO SCH ×2 (07:19→20:23)
[2017-01-13] MEDS: ENOXAPARIN SODIUM 40 MG/0.4 ML SYRINGE SQ SCH (07:23)
[2017-01-13] MEDS: ALBUTEROL SULFATE 90 MCG/ACT HFA 18 GM INHALER INH SCH ×4 (07:26→20:25)
[2017-01-13] MEDS: TIOTROPIUM BROMIDE 18 MCG INH INH SCH (07:26)
[2017-01-13] MEDS: ARTIFICIAL TEARS OPTH SOLN 15 ML BTL EACH EYE PRN (07:27)
[2017-01-13 08:00] VITALS: BP 155/69; PULSE 66; RESP 18; TEMP 96.7; O2SAT 95
[2017-01-13] MEDS: DOCUSATE SODIUM 50 MG/SENNA 8.6 MG TAB PO SCH ×2 (09:00→20:23)
[2017-01-13] MEDS: SODIUM CHLORIDE 0.9% FLUSH 10 ML FLUSH IV FLUSH SCH ×2 (09:00→21:00)
--- NOTE | 2017-01-13 10:55 | HHI.FPPN ---
Subjective Remarks c/o cough c/o nasal drip c/o hip pain reqs dc andrea d/w RN Objective Vitals Vital Signs Date Time Temp Pulse Resp B/P Pulse Ox O2 Delivery O2 Flow Rate FiO2 01/13/17 08:00 96.7 66 18 155/69 95 01/12/17 23:50 96.7 62 18 124/65 97 01/12/17 20:35 97.0 57 17 143/65 98 01/12/17 16:00 95.6 60 18 143/65 94 01/12/17 12:00 95.4 80 18 122/63 95 I/O 01/12/17 01/12/17 01/12/17 01/13/17 01/13/17 01/13/17 07:00 15:00 23:00 07:00 15:00 23:00 Intake Total 240 ml 1200 ml 480 ml 240 ml Output Total 1050 ml 350 ml 1425 ml Balance -810 ml 1200 ml 130 ml -1185 ml Intake Oral 240 ml 1200 ml 480 ml 240 ml Output Urine Total 1050 ml 350 ml 1425 ml # Voids 1 3 1 # Bowel Movements 1 2 1 1 Objective Remarks GENERAL: SKIN: Warm and dry. incison c/d/i HEAD: Atraumatic. Normocephalic. EYES: Pupils equal and round. No scleral icterus. No injection or drainage. ENT: No nasal bleeding or discharge. Mucous membranes pink and moist. NECK: Trachea midline. No JVD. CARDIOVASCULAR: Regular rate and rhythm. RESPIRATORY: No accessory muscle use. Clear to auscultation. Breath sounds equal bilaterally. GASTROINTESTINAL: Abdomen soft, non-tender, nondistended. Hepatic and splenic margins not palpable. MUSCULOSKELETAL: Extremities without clubbing, cyanosis, or edema. No obvious deformities. NEUROLOGICAL: Awake and alert. No obvious cranial nerve deficits. Motor grossly within normal limits. 3 out of 5 muscle strength in the arms and legs. Normal speech. PSYCHIATRIC: Appropriate mood and affect; insight and judgment normal. Medications and IVs Current Medications Medications (Trade) Dose Ordered Sig/Agustin Route Start Time Stop Time Status Last Admin (Percocet 10-325 Mg) 1 tab Q4H PRN PO 01/06/17 16:15 01/13/17 06:14 (Percocet 10-325 Mg) 2 tab Q4H PRN PO 01/06/17 16:15 01/11/17 12:04 (Coreg) 3.125 mg BID PO 01/07/17 21:00 01/13/17 07:19 (Catapres) 0.1 mg BID PO 01/07/17 21:00 01/13/17 07:19 (Lovenox Inj) 40 mg DAILY SQ 01/08/17 09:00 01/13/17 07:23 (Lasix) 10 mg DAILY PO 01/08/17 09:00 01/13/17 07:18 (Glucotrol) 10 mg BIDAC PO 01/07/17 16:00 01/13/17 06:14 (Pravachol) 20 mg HS PO 01/07/17 21:00 01/12/17 20:55 (Ventolin Hfa Inh) 1 puff QID INH 01/07/17 13:00 01/13/17 07:26 (Slo-Niacin) 500 mg HS PO 01/07/17 21:00 01/12/17 20:55 (Protonix) 20 mg DAILY PO 01/07/17 12:00 01/13/17 07:19 (Pill Splitter) 1 ea UNSCH PRN OTHER 01/07/17 10:15 (Spiriva Inh) 18 mcg DAILY INH 01/08/17 09:00 01/13/17 07:26 (NS Flush) 2 ml UNSCH PRN IV FLUSH 01/07/17 10:15 (NS Flush) 2 ml BID IV FLUSH 01/07/17 21:00 01/12/17 20:56 (Zofran Inj) 4 mg Q6H PRN IVP 01/07/17 10:15 (Narcan Inj) 0.4 mg UNSCH PRN IV 01/07/17 10:15 (Kori-Colace) 1 tab BID PO 01/07/17 21:00 01/12/17 20:55 (Milk Of Magnesia Liq) 30 ml Q12H PRN PO 01/07/17 10:15 01/09/17 02:50 (Senokot) 17.2 mg Q12H PRN PO 01/07/17 10:15 01/07/17 12:05 (Dulcolax Supp) 10 mg DAILY PRN RECTAL 01/07/17 10:15 01/08/17 03:13 (Lactulose Liq) 30 ml DAILY PRN PO 01/07/17 10:15 (Miralax) 17 gm HS PO 01/07/17 21:00 01/12/17 20:55 (Catapres) 0.1 mg Q6H PRN PO 01/07/17 10:30 01/08/17 12:03 (Bactrim Ds 800-160 Mg) 1 tab Q12HR PO 01/09/17 09:00 01/13/17 07:18 (Norvasc) 5 mg DAILY PO 01/09/17 09:00 01/13/17 07:19 (Tums Chew) 500 mg Q2H PRN CHEW 01/09/17 02:45 01/09/17 02:50 (Tears Naturale Opth Soln) 1 drop Q12H PRN EACH EYE 01/11/17 11:15 01/13/17 07:27 A/P Problem List: (1) Status post total hip replacement, right Status: Acute Plan: Needs hospital bed for elevating lift to get out of bed being that he is debilitated after total hip repair. [facility] obs admit unsafe dc still at this point d/w CM (2) Dehydration Status: Acute (3) Diabetes Status: Acute (4) Hypertension Status: Acute (5) Dependent for activity Status: Acute (6) Debility Status: Acute (7) Osteoarthritis of right hip Status: Acute Problem Qualifiers (1) Diabetes: Fan Daugherty MD Jan 13, 2017 10:55
[2017-01-13 12:00] VITALS: BP 142/68; PULSE 82; RESP 18; TEMP 96.4; O2SAT 94
[2017-01-13] MEDS: POLYETHYLENE GLYCOL 17 GM PKG PO SCH (20:23)
[2017-01-13] MEDS: NIACIN 500 MG EXTENDED RELEASE TAB PO SCH (20:23)
[2017-01-13 20:25] VITALS: BP 145/76; PULSE 61; RESP 17; TEMP 96.3; O2SAT 98
[2017-01-13] MEDS: PRAVASTATIN SOD 20 MG TAB PO SCH (21:00)
[2017-01-14 00:45] VITALS: BP 140/67; PULSE 62; RESP 17; TEMP 96.7; O2SAT 94
[2017-01-14] MEDS: glipiZIDE 10 MG TAB PO SCH ×2 (06:18→17:00)
[2017-01-14] MEDS: INSULIN ASPART SUPPLEMENTAL SCALE SQ SCH ×4 (06:18→22:14)
[2017-01-14 08:00] VITALS: BP 138/65; PULSE 65; RESP 18; TEMP 96.1; O2SAT 96
[2017-01-14] MEDS: TIOTROPIUM BROMIDE 18 MCG INH INH SCH (09:00)
[2017-01-14] MEDS: ENOXAPARIN SODIUM 40 MG/0.4 ML SYRINGE SQ SCH (09:23)
[2017-01-14] MEDS: SULFAMETHOXAZOLE-TRIMETHOPRIM DS 800-160 MG TAB PO SCH ×2 (09:23→22:04)
[2017-01-14] MEDS: amLODIPine BESYLATE 5 MG TAB PO SCH (09:23)
[2017-01-14] MEDS: cloNIDine HCL 0.1 MG TAB PO SCH ×2 (09:23→22:04)
[2017-01-14] MEDS: FUROSEMIDE 20 MG TAB PO SCH (09:23)
[2017-01-14] MEDS: CARVEDILOL 3.125 MG TAB PO SCH ×2 (09:23→22:04)
[2017-01-14] MEDS: DOCUSATE SODIUM 50 MG/SENNA 8.6 MG TAB PO SCH ×2 (09:23→22:04)
[2017-01-14] MEDS: SODIUM CHLORIDE 0.9% FLUSH 10 ML FLUSH IV FLUSH SCH ×2 (09:24→22:05)
[2017-01-14] MEDS: PANTOPRAZOLE SOD 20 MG DELAYED RELEASE TAB PO SCH (09:24)
[2017-01-14] MEDS: ALBUTEROL SULFATE 90 MCG/ACT HFA 18 GM INHALER INH SCH ×4 (09:25→22:06)
--- NOTE | 2017-01-14 10:54 | HHI.PR ---
Subjective Remarks F-U Right hip replacement 01/14/17-patient seen and examined; he was walking in the hallway with the assistance of PT; no acute event overnight. Case was discussed with CM Objective Vitals Vital Signs Date Time Temp Pulse Resp B/P Pulse Ox O2 Delivery O2 Flow Rate FiO2 01/14/17 08:00 96.1 65 18 138/65 96 01/14/17 00:45 96.7 62 17 140/67 94 01/13/17 20:25 96.3 61 17 145/76 98 01/13/17 12:00 96.4 82 18 142/68 94 I/O 01/13/17 01/13/17 01/13/17 01/14/17 01/14/17 01/14/17 07:00 15:00 23:00 07:00 15:00 23:00 Intake Total 240 ml 480 ml 240 ml Output Total 1425 ml 300 ml 800 ml Balance -1185 ml 180 ml -560 ml Intake Oral 240 ml 480 ml 240 ml Output Urine Total 1425 ml 300 ml 800 ml # Voids 1 # Bowel Movements 1 1 0 Objective Remarks GENERAL: NAD and up and walking with assistance of PT SKIN: Warm and dry. HEAD: Normocephalic. EYES: No scleral icterus. No injection or drainage. NECK: Supple, trachea midline. No JVD or lymphadenopathy. CARDIOVASCULAR: Regular rate and rhythm without murmurs, gallops, or rubs. RESPIRATORY: Breath sounds equal bilaterally. No accessory muscle use. GASTROINTESTINAL: Abdomen soft, non-tender, nondistended. MUSCULOSKELETAL: No cyanosis, or edema. BACK: Nontender without obvious deformity. No CVA tenderness. A/P Problem List: (1) Status post total hip replacement, right ICD Code: Z96.641 Status: Acute (2) Dependent for activity ICD Code: Z74.1 Status: Acute (3) Osteoarthritis of right hip ICD Code: M16.11 Status: Acute (4) Diabetes ICD Code: E11.9 Status: Acute (5) Hypertension ICD Code: I10 Status: Acute (6) Dehydration ICD Code: E86.0 Status: Acute Assessment and Plan 81 yrs old man with s/p Rip replacement Continue with current management with PT, pain management, stool softener Still not a safe discharge History of diabetes type 2 Continue with current management,ISS Hypertension On Coreg, Norvasc Hyperlipidemia Continue with Pravachol, niacin COPD No exacerbation, continue Spiriva, DuoNeb when necessary DVT prophylaxis: Lovenox Problem Qualifiers (1) Diabetes: Toribio Perez MD Jan 14, 2017 10:54
[2017-01-14 12:00] VITALS: BP 126/68; PULSE 60; RESP 17; TEMP 96; O2SAT 96
[2017-01-14 16:00] VITALS: BP 145/75; PULSE 61; RESP 18; TEMP 95.8; O2SAT 97
[2017-01-14 20:10] VITALS: BP 157/70; PULSE 65; RESP 19; TEMP 97.3; O2SAT 97
[2017-01-14] MEDS: PRAVASTATIN SOD 20 MG TAB PO SCH (22:03)
[2017-01-14] MEDS: POLYETHYLENE GLYCOL 17 GM PKG PO SCH (22:04)
[2017-01-14] MEDS: NIACIN 500 MG EXTENDED RELEASE TAB PO SCH (22:13)
[2017-01-15 00:25] VITALS: BP 140/66; PULSE 60; RESP 18; TEMP 96.6; O2SAT 97
[2017-01-15] MEDS: glipiZIDE 10 MG TAB PO SCH ×2 (06:40→16:27)
[2017-01-15] MEDS: INSULIN ASPART SUPPLEMENTAL SCALE SQ SCH ×4 (06:42→20:43)
[2017-01-15 08:00] VITALS: BP 139/69; PULSE 64; RESP 18; TEMP 96.5; O2SAT 96
[2017-01-15] MEDS: TIOTROPIUM BROMIDE 18 MCG INH INH SCH (09:00)
[2017-01-15] MEDS: SULFAMETHOXAZOLE-TRIMETHOPRIM DS 800-160 MG TAB PO SCH ×2 (09:00→20:40)
[2017-01-15] MEDS: amLODIPine BESYLATE 5 MG TAB PO SCH (09:31)
[2017-01-15] MEDS: ENOXAPARIN SODIUM 40 MG/0.4 ML SYRINGE SQ SCH (09:31)
[2017-01-15] MEDS: FUROSEMIDE 20 MG TAB PO SCH (09:31)
[2017-01-15] MEDS: PANTOPRAZOLE SOD 20 MG DELAYED RELEASE TAB PO SCH (09:31)
[2017-01-15] MEDS: cloNIDine HCL 0.1 MG TAB PO SCH ×2 (09:31→20:39)
[2017-01-15] MEDS: CARVEDILOL 3.125 MG TAB PO SCH ×2 (09:31→20:39)
[2017-01-15] MEDS: DOCUSATE SODIUM 50 MG/SENNA 8.6 MG TAB PO SCH ×2 (09:33→20:39)
[2017-01-15] MEDS: SODIUM CHLORIDE 0.9% FLUSH 10 ML FLUSH IV FLUSH SCH ×2 (09:33→20:42)
[2017-01-15] MEDS: ALBUTEROL SULFATE 90 MCG/ACT HFA 18 GM INHALER INH SCH ×4 (09:33→20:42)
[2017-01-15 12:00] VITALS: BP 112/63; PULSE 63; RESP 15; TEMP 96.3; O2SAT 100
--- NOTE | 2017-01-15 12:34 | HHI.PR ---
Subjective Remarks F-U Right hip replacement 01/14/17-patient seen and examined; he was walking in the hallway with the assistance of PT; no acute event overnight. Case was discussed with CM 01/15/17-patient seen and examined; states he is tired of laying in Bed and would like to go home Objective Vitals Vital Signs Date Time Temp Pulse Resp B/P Pulse Ox O2 Delivery O2 Flow Rate FiO2 01/15/17 08:00 96.5 64 18 139/69 96 01/15/17 00:25 96.6 60 18 140/66 97 01/14/17 20:10 97.3 65 19 157/70 97 01/14/17 16:00 95.8 61 18 145/75 97 I/O 01/14/17 01/14/17 01/14/17 01/15/17 01/15/17 01/15/17 07:00 15:00 23:00 07:00 15:00 23:00 Intake Total 240 ml 480 ml 600 ml Output Total 800 ml 425 ml 200 ml Balance -560 ml 55 ml 400 ml Intake Oral 240 ml 480 ml 600 ml Output Urine Total 800 ml 425 ml 200 ml # Bowel Movements 0 1 0 Objective Remarks GENERAL: NAD SKIN: Warm and dry. HEAD: Normocephalic. EYES: No scleral icterus. No injection or drainage. NECK: Supple, trachea midline. No JVD or lymphadenopathy. CARDIOVASCULAR: Regular rate and rhythm without murmurs, gallops, or rubs. RESPIRATORY: Breath sounds equal bilaterally. No accessory muscle use. GASTROINTESTINAL: Abdomen soft, non-tender, nondistended. MUSCULOSKELETAL: No cyanosis, or edema. BACK: Nontender without obvious deformity. No CVA tenderness. A/P Problem List: (1) Status post total hip replacement, right ICD Code: Z96.641 Status: Acute (2) Dependent for activity ICD Code: Z74.1 Status: Acute (3) Osteoarthritis of right hip ICD Code: M16.11 Status: Acute (4) Diabetes ICD Code: E11.9 Status: Acute (5) Hypertension ICD Code: I10 Status: Acute (6) Dehydration ICD Code: E86.0 Status: Acute Assessment and Plan 81 yrs old man with s/p Rip replacement Continue with current management with PT, pain management, stool softener Still not a safe discharge History of diabetes type 2 Stable and Continue with current management,ISS Hypertension Stable On Coreg, Norvasc Hyperlipidemia Continue with Pravachol, niacin COPD No exacerbation, continue Spiriva, DuoNeb when necessary DVT prophylaxis: Lovenox Discharge Planning Likely discharge 01/16/17 Problem Qualifiers (1) Diabetes: Toribio Perez MD Jan 15, 2017 12:34
[2017-01-15 16:00] VITALS: BP 139/59; PULSE 61; RESP 18; TEMP 96.3; O2SAT 99
[2017-01-15] MEDS: CALCIUM CARBONATE 500 MG CHEWABLE TAB CHEW PRN ×2 (16:27→20:41)
[2017-01-15 20:20] VITALS: BP 160/81; PULSE 66; RESP 18; TEMP 97.4; O2SAT 96
[2017-01-15] MEDS: POLYETHYLENE GLYCOL 17 GM PKG PO SCH (20:38)
[2017-01-15] MEDS: NIACIN 500 MG EXTENDED RELEASE TAB PO SCH (20:39)
[2017-01-15] MEDS: PRAVASTATIN SOD 20 MG TAB PO SCH (20:39)
[2017-01-15] MEDS: oxyCODONE/ACETAMINOPHEN 10 MG/325 MG TAB PO PRN (20:40)
[2017-01-16 00:30] VITALS: BP 140/63; PULSE 68; RESP 18; TEMP 97.6; O2SAT 98
[2017-01-16] MEDS: glipiZIDE 10 MG TAB PO SCH (06:16)
[2017-01-16] MEDS: INSULIN ASPART SUPPLEMENTAL SCALE SQ SCH (06:40)
--- NOTE | 2017-01-16 07:23 | HHI.FPPN ---
Objective Vitals Vital Signs Date Time Temp Pulse Resp B/P Pulse Ox O2 Delivery O2 Flow Rate FiO2 01/16/17 00:30 97.6 68 18 140/63 98 01/15/17 20:20 97.4 66 18 160/81 96 01/15/17 16:00 96.3 61 18 139/59 99 01/15/17 12:00 96.3 63 15 112/63 100 01/15/17 08:00 96.5 64 18 139/69 96 I/O 01/15/17 01/15/17 01/15/17 01/16/17 01/16/17 01/16/17 07:00 15:00 23:00 07:00 15:00 23:00 Intake Total 720 ml 240 ml 240 ml Output Total 950 ml 800 ml Balance -230 ml 240 ml -560 ml Intake Oral 720 ml 240 ml 240 ml Output Urine Total 950 ml 800 ml # Voids 2 # Bowel Movements 3 1 0 Objective Remarks GENERAL: SKIN: Warm and dry. incison c/d/i HEAD: Atraumatic. Normocephalic. EYES: Pupils equal and round. No scleral icterus. No injection or drainage. ENT: No nasal bleeding or discharge. Mucous membranes pink and moist. NECK: Trachea midline. No JVD. CARDIOVASCULAR: Regular rate and rhythm. RESPIRATORY: No accessory muscle use. Clear to auscultation. Breath sounds equal bilaterally. GASTROINTESTINAL: Abdomen soft, non-tender, nondistended. Hepatic and splenic margins not palpable. MUSCULOSKELETAL: Extremities without clubbing, cyanosis, or edema. No obvious deformities. NEUROLOGICAL: Awake and alert. No obvious cranial nerve deficits. Motor grossly within normal limits. 3 out of 5 muscle strength in the arms and legs. Normal speech. PSYCHIATRIC: Appropriate mood and affect; insight and judgment normal. A/P Problem List: (1) Status post total hip replacement, right Status: Acute Plan: Needs hospital bed for elevating lift to get out of bed being that he is debilitated after total hip repair. [facility] obs admit unsafe dc still at this point d/w CM (2) Dehydration Status: Acute (3) Diabetes Status: Acute (4) Hypertension Status: Acute (5) Dependent for activity Status: Acute (6) Debility Status: Acute (7) Osteoarthritis of right hip Status: Acute Problem Qualifiers (1) Diabetes: Fan Daugherty MD Jan 16, 2017 07:23
[2017-01-16 08:00] VITALS: BP 149/69; PULSE 60; RESP 17; TEMP 95.9; O2SAT 98
--- NOTE | 2017-01-16 08:35 | HHI.DS ---
Discharge Summary Admission Date January 06, 2017 at 15:32 Discharge Date: Jan 16, 2017 Admitting Diagnosis post operative pain, inability to perform ADLs (1) Status post total hip replacement, right (2) Dependent for activity (3) Osteoarthritis of right hip (4) Diabetes (5) Hypertension (6) Dehydration PE at Discharge GENERAL: walking, no complaints MUSCULOSKELETAL: Extremities without clubbing, cyanosis, or edema. No obvious deformities. NEUROLOGICAL: Normal speech. PSYCHIATRIC: Appropriate mood and affect; insight and judgment normal. Hospital Course 81 yrs old man with s/p Rip replacement Continue with current management with PT, pain management, stool softener discharge pt request, walking about with walker and has family support at home History of diabetes type 2 Stable and Continue with current management,ISS Hypertension Stable On Coreg, Norvasc Hyperlipidemia Continue with Pravachol, niacin COPD No exacerbation, continue Spiriva, DuoNeb when necessary DVT prophylaxis: Lovenox Discharge Discharge Instructions Follow up Referrals: Orthopedics with Moody Wilder MD PCP Follow-up - 2-[address] pierce New Medications: Aspirin (Aspirin) 325 Mg Tab 325 MG PO DAILY Start Aspirin after Lovenox is completed. Prevent Blood Clot # 30 Ref 0 TAB Enoxaparin Inj (Lovenox Inj) 40 Mg/0.4 Ml Syr 40 MG SQ DAILY Start Aspirin after Lovenox is completed. Blood Clot Prevention # 7 Ref 0 SYRINGE Hospital Bed - Electric (Hospital Bed - Electric) 1 Ea Ea 1 EA .ROUTE DIRECTED #1 EA Oxycodone-Acetaminophen (Percocet) 10-325 mg Tab 1-2 TAB PO Q4H PRN PAIN #40 Ref 0 TAB Continued Medications: Aspirin (Aspirin) 325 Mg Tab 325 MG PO ONCE Start Aspirin after Lovenox is completed. Prevent Blood Clot #30 Ref 0 TAB Carvedilol (Carvedilol) 3.125 Mg Tab 3.125 MG PO BID #60 Ref 0 TAB Clonidine (Clonidine) 0.1 Mg Tab 0.1 MG PO BID Blood Pressure Management #60 Ref 0 TAB Enoxaparin Inj (Lovenox Inj) 40 Mg/0.4 Ml Syr 40 MG SQ DAILY Start Aspirin after Lovenox is completed. Blood Clot Prevention # 10 Ref 0 SYRINGE Furosemide (Furosemide) 20 Mg Tab 10 MG PO DAILY #30 Ref 0 TAB Glipizide (Glipizide) 10 Mg Tab 10 MG PO BIDAC Take 30 minutes before a meal Blood Sugar Management #60 Ref 0 TAB Ipratropium-Albuterol Inh (Combivent Respimat Inh) 20-100 Retirement/Act Aero 1 PUFF INH QID Asthma Management #1 Ref 0 INHALER Niacin (Niacin) 500 Mg Tab 500 MG PO HS Cholesterol Management #30 Ref 0 TAB Omeprazole (Omeprazole) 20 Mg Tab 20 MG PO DAILY #30 Ref 0 TAB Oxycodone-Acetaminophen (Percocet) 10-325 mg Tab 1-2 TAB PO Q4H PRN PAIN #60 Ref 0 TAB Pravastatin (Pravastatin) 20 Mg Tab 20 MG PO HS Cholesterol Management #30 Ref 0 TAB Fan Pierce MD Jan 16, 2017 08:35 Niacin (Niacin) 500 Mg Tab 500 MG PO HS Cholesterol Management #30 Ref 0 TAB Omeprazole (Omeprazole) 20 Mg Tab 20 MG PO DAILY #30 Ref 0 TAB Oxycodone-Acetaminophen (Percocet) 10-325 mg Tab 1-2 TAB PO Q4H PRN PAIN #60 Ref 0 TAB Pravastatin (Pravastatin) 20 Mg Tab 20 MG PO HS Cholesterol Management #30 Ref 0 TAB Fan Pierce MD Jan 16, 2017 08:35
--- NOTE | 2017-01-16 08:39 | HHI.DCPOC ---
Discharge Care Plan Diagnosis: (1) Dehydration (2) Diabetes (3) Hypertension (4) Dependent for activity (5) Debility (6) Osteoarthritis of right hip (7) Status post total hip replacement, right Goals to Promote Your Health * To prevent worsening of your condition and complications * To maintain your health at the optimal level Directions to Meet Your Goals Take your medications as prescribed Follow your dietary instruction Follow activity as directed Keep your appointments as scheduled Take your immunizations and boosters as scheduled If your symptoms worsen call your PCP, if no PCP go to Urgent Care Center or Emergency Room Smoking is Dangerous to Your Health. Avoid second hand smoke Call the 24-hour hour crisis hotline for domestic abuse at Fan Daugherty MD Jan 16, 2017 08:39
--- NOTE | 2017-01-16 08:40 | HHI.FF ---
Face to Face Verification Diagnosis: (1) Dehydration (2) Diabetes (3) Hypertension (4) Dependent for activity (5) Debility (6) Osteoarthritis of right hip (7) Status post total hip replacement, right Physical Therapy Order: Evaluate and Treat, Improve ambulation, Strength and gait training Occupational Therapy Order: Evaluate and Treat, Improve ADL, Gross motor coordination Home Health Nursing Order: Medical education Signs/symptoms of disease process Diabetic education Medication education-adverse effect Wound care and dressing changes Nursing assessment with vital signs Telehealth Home Health Aide Order: To Assist In: Bathing and personal care, rn new graduate and meal prep Electronic Scale Tester Order: To Evaluate: Living conditions/environment, Support services Order: To Provide: Long range planning, Community services I have seen patient Ton Anna on 01/16/17. My clinical findings support the need for the requested home health care services because: Ltd mobility - disease progression Patient has SOB Deconditioned w/ increased weakness Med compliance is questionable Limited ability to care for self Need for psychosocial assistance Impaired cognition/judgement High risk of falls Injectable med education/admin I certify that my clinical findings support that this patient is homebound because: Post-op weakness Impaired cognitive ability/safety Unsteady gait/balance Unsafe to leave home unassisted Need for psychosocial assistance [id number] bed/chair Unable to use public transportation Poor cardiac reserve Fan Daugherty MD Jan 16, 2017 08:40
[2017-01-16] MEDS: DOCUSATE SODIUM 50 MG/SENNA 8.6 MG TAB PO SCH (09:00)
[2017-01-16] MEDS: amLODIPine BESYLATE 5 MG TAB PO SCH (09:40)
[2017-01-16] MEDS: PANTOPRAZOLE SOD 20 MG DELAYED RELEASE TAB PO SCH (09:40)
[2017-01-16] MEDS: ENOXAPARIN SODIUM 40 MG/0.4 ML SYRINGE SQ SCH (09:40)
[2017-01-16] MEDS: SULFAMETHOXAZOLE-TRIMETHOPRIM DS 800-160 MG TAB PO SCH (09:41)
[2017-01-16] MEDS: cloNIDine HCL 0.1 MG TAB PO SCH (09:41)
[2017-01-16] MEDS: CARVEDILOL 3.125 MG TAB PO SCH (09:41)
[2017-01-16] MEDS: FUROSEMIDE 20 MG TAB PO SCH (09:41)
[2017-01-16] MEDS: TIOTROPIUM BROMIDE 18 MCG INH INH SCH (09:43)
[2017-01-16] MEDS: ALBUTEROL SULFATE 90 MCG/ACT HFA 18 GM INHALER INH SCH (09:43)
[2017-01-16] MEDS: SODIUM CHLORIDE 0.9% FLUSH 10 ML FLUSH IV FLUSH SCH (09:52)
[2017-01-16] MEDS: CALCIUM CARBONATE 500 MG CHEWABLE TAB CHEW PRN (10:38)
[2017-01-16] MEDS: oxyCODONE/ACETAMINOPHEN 10 MG/325 MG TAB PO PRN (10:39)
[2017-01-16 12:00] VITALS: BP 150/68; PULSE 66; RESP 14; TEMP 96.1; O2SAT 97
== END 2017-01-16 12:27 | disposition home health service (06) ==
LOC: NEPC 12:01 → INTOOBSV 15:32 → NEDA 15:32 → N06A 17:58
PROVIDERS: ADMIT Family Medicine; ATTEND Family Medicine
DX: G89.18 Other acute postprocedural pain (principal); Z96.641 Presence of right artificial hip joint; R53.81 Other malaise; E86.0 Dehydration; E11.9 Type 2 diabetes mellitus without complications; I10 Essential (primary) hypertension; E78.5 Hyperlipidemia, unspecified; J44.9 Chronic obstructive pulmonary disease, unspecified; N34.2 Other urethritis; G89.29 Other chronic pain; M54.9 Dorsalgia, unspecified; K59.00 Constipation, unspecified; K21.9 Gastro-esophageal reflux disease without esophagitis; Z85.828 Personal history of other malignant neoplasm of skin; Z88.5 Allergy status to narcotic agent; Z79.82 Long term (current) use of aspirin; Z95.0 Presence of cardiac pacemaker
CPT/HCPCS: 80048; 80053; 81001; 82948; 84153; 85025; 87086; 97110; 97116; 97150; 97162; 97167; 97530; 97535; 99285; G0378; G8987; G8988; J1650; J1815; J7030